=== PATIENT | male | born 1980 | race Hispanic/Latino ===

== ENCOUNTER 2021-02-17 14:39 | Emergency (ER) | payer OTHER ==
[~2021-02-17] VITALS: Ht 175.3 cm; Wt 68.0 kg
[~2021-02-17 14:39] MED LIST: REPREXAIN; Z MAGNESIUM PO; [UNRECOGNIZED DRUG - OTHER] IH; [UNRECOGNIZED DRUG - OTHER] PO; [UNRECOGNIZED DRUG - OTHER] PO
[2021-02-17 15:11] LABS: BASOPHILS # (AUTO) 0.1 (0.0-0.1); BASOPHILS % 1.4 % (0.0-1.0); EOSINOPHILS # (AUTO) 0.3 (0.0-0.4); EOSINOPHILS % 4.3 % (0.0-6.0); HEMATOCRIT 53.3 % (38.2-49.6); HEMOGLOBIN 17.5 g/dL (14.0-18.0); LYMPHOCYTES # (AUTO) 2.6 (1.0-3.2); LYMPHOCYTES % 35.7 % (18.0-39.1); MEAN CORPUSCULAR HEMOGLOBIN 31.7 pg (28-32); MEAN CORPUSCULAR HGB CONC 32.8 g/dL (31-35); MEAN CORPUSCULAR VOLUME 96.6 fL (81-99); MONOCYTES # (AUTO) 0.5 (0.2-0.8); MONOCYTES % 6.6 % (4.4-11.3); NEUTROPHILS # (AUTO) 3.8 (2.1-6.9); NEUTROPHILS % 51.9 % (38.7-80.0); PLATELET COUNT 254 x10e3/uL (140-360); RED BLOOD COUNT 5.52 x10e6/uL (4.3-5.7); RED CELL DISTRIBUTION WIDTH 14.1 % (11.7-14.4)
[2021-02-17 15:42] LABS: ALANINE AMINOTRANSFERASE 21 IU/L (0-55); ALBUMIN 4.3 g/dL (3.5-5.0); ALBUMIN/GLOBULIN RATIO 1.2 (0.8-2.0); ALKALINE PHOSPHATASE 48 IU/L (40-150); ANION GAP 17.4 mmol/L (8-16); BLOOD UREA NITROGEN < 5 mg/dL (7-26); CALCIUM 9.8 mg/dL (8.4-10.2); CARBON DIOXIDE 27 mmol/L (22-29); CHLORIDE 98 mmol/L (98-107); CREATININE, SERUM 1.99 mg/dL (0.72-1.25); EST GLOMERULAR FILTRATION RATE 37 ML/MIN (60-); GLUCOSE 103 mg/dL (74-118); POTASSIUM 3.4 mmol/L (3.5-5.1); SODIUM 139 mmol/L (136-145)
[2021-02-17 15:43] LABS: BUN/CREATININE RATIO 3 (6-25)
[2021-02-17] MEDS ORDERED: ACETAMINOPHEN 325 MG TAB PO PRN (15:45)
== END 2021-02-17 17:49 | disposition home or self-care (01) ==
LOC: ER 14:46
DX: R07.9 Chest pain, unspecified (principal); R50.9 Fever, unspecified; E23.2 Diabetes insipidus; Z20.822 Contact with and (suspected) exposure to COVID-19; Z85.841 Personal history of malignant neoplasm of brain
CPT/HCPCS: 36415; 71045; 80053; 84484; 85025; 85379; 93005; 99284; U0002

== ENCOUNTER 2021-03-12 12:44 | Inpatient (IN) | payer OTHER ==
[~2021-03-12] VITALS: Ht 175.3 cm; Wt 68.0 kg
[2021-03-12] MEDS ORDERED: ONDANSETRON HCL INJ 2MG/ML 2ML 2 MG/ML VIAL IV STA (13:26)
[2021-03-12] MEDS ORDERED: SODIUM CHLORIDE 0.9% 1000ML 1,000 ML IV SCH ×2 (13:30→15:15)
[2021-03-12 14:24] LABS: BASOPHILS # (AUTO) 0.1 (0.0-0.1); BASOPHILS % 1.2 % (0.0-1.0); EOSINOPHILS # (AUTO) 0.2 (0.0-0.4); EOSINOPHILS % 2.9 % (0.0-6.0); HEMATOCRIT 46.6 % (38.2-49.6); HEMOGLOBIN 15.4 g/dL (14.0-18.0); LYMPHOCYTES # (AUTO) 2.9 (1.0-3.2); LYMPHOCYTES % 43.6 % (18.0-39.1); MEAN CORPUSCULAR VOLUME 96.9 fL (81-99); MONOCYTES # (AUTO) 0.6 (0.2-0.8); MONOCYTES % 8.3 % (4.4-11.3); NEUTROPHILS # (AUTO) 2.9 (2.1-6.9); NEUTROPHILS % 43.4 % (38.7-80.0); PLATELET COUNT 323 x10e3/uL (140-360); RED BLOOD COUNT 4.81 x10e6/uL (4.3-5.7); RED CELL DISTRIBUTION WIDTH 15.7 % (11.7-14.4)
[2021-03-12 14:41] LABS: ALANINE AMINOTRANSFERASE 10 IU/L (0-55); ALBUMIN 3.8 g/dL (3.5-5.0); ALBUMIN/GLOBULIN RATIO 0.9 (0.8-2.0); ALKALINE PHOSPHATASE 53 IU/L (40-150); ANION GAP 24.4 mmol/L (8-16); BLOOD UREA NITROGEN < 5 mg/dL (7-26); CALCIUM 9.9 mg/dL (8.4-10.2); CARBON DIOXIDE 22 mmol/L (22-29); CHLORIDE 103 mmol/L (98-107); CREATININE, SERUM 2.24 mg/dL (0.72-1.25); EST GLOMERULAR FILTRATION RATE 33 ML/MIN (60-); GLUCOSE 87 mg/dL (74-118); POTASSIUM 3.4 mmol/L (3.5-5.1); SODIUM 146 mmol/L (136-145)
[2021-03-12 14:43] LABS: BUN/CREATININE RATIO 2 (6-25)
[2021-03-12 15:39] LABS: INR 1.23; PROTHROMBIN TIME 15.8 seconds (11.9-14.5)
[2021-03-12 15:40] LABS: PARTIAL THROMBOPLASTIN TIME 41.5 seconds (23.8-35.5)
[2021-03-12 15:56] LABS: CLARITY,URINE CLEAR (CLEAR); COLOR,URINE YELLOW (YELLOW); KETONES,URINE NEGATIVE (NEGATIVE); LEUKOCYTE ESTERASE ,URINE NEGATIVE (NEGATIVE); NITRITE,URINE NEGATIVE (NEGATIVE); PROTEIN,URINE DIPSTICK NEGATIVE (NEGATIVE); URINE UROBILINOGEN 0.2 mg/dL (0.2 - 1)
[2021-03-12 16:08] LABS: BACTERIA,URINE FEW /HPF
[2021-03-12] MEDS: KCL 20MEQ/.9 SOD CHL 1,000 ML IV SCH (16:51)
[2021-03-12 20:00] VITALS: BP 81/56
[2021-03-12 21:00] VITALS: BP 81/56
[2021-03-12 22:49] VITALS: BP 81/56
[2021-03-13] VITALS (8 sets, daily range): BP systolic 86–101; BP diastolic 55–72
[2021-03-13] MEDS: KCL 20MEQ/.9 SOD CHL 1,000 ML IV SCH ×2 (00:30→03:00)
[2021-03-13 05:44] LABS: BASOPHILS # (AUTO) 0.1 (0.0-0.1); BASOPHILS % 1.3 % (0.0-1.0); EOSINOPHILS # (AUTO) 0.2 (0.0-0.4); HEMATOCRIT 43.1 % (38.2-49.6); LYMPHOCYTES # (AUTO) 2.3 (1.0-3.2); LYMPHOCYTES % 41.7 % (18.0-39.1); MEAN CORPUSCULAR HGB CONC 32.5 g/dL (31-35); MEAN CORPUSCULAR VOLUME 98.6 fL (81-99); MONOCYTES # (AUTO) 0.6 (0.2-0.8); MONOCYTES % 10.2 % (4.4-11.3); NEUTROPHILS # (AUTO) 2.4 (2.1-6.9); NEUTROPHILS % 43.6 % (38.7-80.0); PLATELET COUNT 232 x10e3/uL (140-360); RED BLOOD COUNT 4.37 x10e6/uL (4.3-5.7); RED CELL DISTRIBUTION WIDTH 15.6 % (11.7-14.4)
[2021-03-13 06:18] LABS: ALANINE AMINOTRANSFERASE 9 IU/L (0-55); ALBUMIN 3.2 g/dL (3.5-5.0); ALBUMIN/GLOBULIN RATIO 0.9 (0.8-2.0); ALKALINE PHOSPHATASE 42 IU/L (40-150); AMYLASE 16 U/L (25-125); ANION GAP 18.7 mmol/L (8-16); BLOOD UREA NITROGEN < 5 mg/dL (7-26); CALCIUM 8.5 mg/dL (8.4-10.2); CARBON DIOXIDE 19 mmol/L (22-29); CHLORIDE 113 mmol/L (98-107); CREATININE, SERUM 1.92 mg/dL (0.72-1.25); EST GLOMERULAR FILTRATION RATE 39 ML/MIN (60-); GLUCOSE 77 mg/dL (74-118); LIPASE 73 U/L (8-78); POTASSIUM 3.7 mmol/L (3.5-5.1); SODIUM 147 mmol/L (136-145)
[2021-03-13 06:27] LABS: BUN/CREATININE RATIO 3 (6-25)
[2021-03-13] MEDS: ONDANSETRON HCL INJ 2MG/ML 2ML 2 MG/ML VIAL IV PRN ×2 (09:48→14:16)
[2021-03-13] MEDS ORDERED: levothyroxine PO (09:55)
[2021-03-13] MEDS ORDERED: DEXAMETHASONE4 MG PO (09:55)
[2021-03-13] MEDS ORDERED: CYCLOBENZAPRINE10 MG PO (09:55)
[2021-03-13] MEDS ORDERED: FAMOTIDINE20 MG PO (09:55)
[2021-03-13] MEDS ORDERED: FOLIC ACID0.4 MG PO (09:55)
[2021-03-13] MEDS ORDERED: LEVETIRACETAM500 MG PO ×2 (09:55)
[2021-03-13] MEDS ORDERED: DDAVP0.1 MG PO (09:55)
[2021-03-13] MEDS ORDERED: DOCUSATE SODIUM 100 MG CAP PO PRN (10:30)
[2021-03-13] MEDS ORDERED: CYCLOBENZAPRINE HCL 10 MG TAB PO PRN (10:30)
[2021-03-13] MEDS ORDERED: ZOLPIDEM TARTRATE 5 MG TAB PO PRN (10:30)
[2021-03-13] MEDS: FAMOTIDINE 20 MG TAB PO SCH (11:16)
[2021-03-13] MEDS: SODIUM CHLORIDE 0.45% 1,000 ML IV SCH ×2 (11:16→20:14)
[2021-03-13] MEDS: MORPHINE SULFATE INJ 2 MG/ML SYR IV PRN (14:16)
[2021-03-13] MEDS: DESMOPRESSIN ACETATE 0.1 MG PO SCH ×2 (15:53→20:47)
[2021-03-13] MEDS: LEVETIRACETAM 500 MG TAB PO SCH (16:05)
[2021-03-14] VITALS (8 sets, daily range): BP systolic 87–109; BP diastolic 58–72
[2021-03-14] MEDS: MORPHINE SULFATE INJ 2 MG/ML SYR IV PRN ×2 (00:39→04:45)
[2021-03-14] MEDS: SODIUM CHLORIDE 0.45% 1,000 ML IV SCH ×2 (02:33→09:20)
[2021-03-14] MEDS: LEVOTHYROXINE SODIUM 25 MCG TABLET PO SCH (05:55)
[2021-03-14] MEDS: LEVOTHYROXINE SODIUM 112 MCG TAB PO SCH (05:55)
[2021-03-14] MEDS: HOME MEDICATION--PATIENTS OWN PO SCH (10:32)
[2021-03-14] MEDS: DESMOPRESSIN ACETATE 0.1 MG PO SCH ×3 (10:32→20:37)
[2021-03-14] MEDS: FOLIC ACID 1 MG TAB PO SCH (10:33)
[2021-03-14] MEDS: FAMOTIDINE 20 MG TAB PO SCH (10:33)
[2021-03-14] MEDS: LEVETIRACETAM 500 MG TAB PO SCH ×2 (10:33→18:10)
[2021-03-14] MEDS: ONDANSETRON HCL INJ 2MG/ML 2ML 2 MG/ML VIAL IV PRN (12:11)
[2021-03-14 13:02] LABS: ANION GAP 16.9 mmol/L (8-16); BLOOD UREA NITROGEN < 5 mg/dL (7-26); CALCIUM 8.5 mg/dL (8.4-10.2); CARBON DIOXIDE 17 mmol/L (22-29); CHLORIDE 116 mmol/L (98-107); CREATININE, SERUM 1.87 mg/dL (0.72-1.25); EST GLOMERULAR FILTRATION RATE 40 ML/MIN (60-); GLUCOSE 119 mg/dL (74-118); POTASSIUM 3.9 mmol/L (3.5-5.1); SODIUM 146 mmol/L (136-145)
[2021-03-14 13:04] LABS: BUN/CREATININE RATIO 3 (6-25)
[2021-03-14] MEDS ORDERED: DEXTROSE 50% SYRINGE 50 ML IV PRN (13:30)
[2021-03-14] MEDS: SODIUM BICARBONATE 8.4% 100 ML in SODIUM CHLORIDE 0.45% 1,000 ML IV SCH ×2 (14:04→21:21)
[2021-03-14] MEDS: ACETAMINOPHEN/CODEINE 300MG - 30MG TAB PO PRN (15:07)
[2021-03-14] MEDS: INSULIN LISPRO 100 UNIT/1 ML 3ML VIAL SQ SCH ×2 (16:30→20:27)
[2021-03-15] VITALS (8 sets, daily range): BP systolic 84–102; BP diastolic 49–67
[2021-03-15] MEDS: ACETAMINOPHEN/CODEINE 300MG - 30MG TAB PO PRN ×4 (02:10→23:02)
[2021-03-15] MEDS: SODIUM BICARBONATE 8.4% 100 ML in SODIUM CHLORIDE 0.45% 1,000 ML IV SCH (03:28)
[2021-03-15] MEDS: LEVOTHYROXINE SODIUM 112 MCG TAB PO SCH (05:52)
[2021-03-15] MEDS: LEVOTHYROXINE SODIUM 25 MCG TABLET PO SCH (05:52)
[2021-03-15] MEDS: INSULIN LISPRO 100 UNIT/1 ML 3ML VIAL SQ SCH ×4 (07:30→21:00)
[2021-03-15] MEDS: ONDANSETRON HCL INJ 2MG/ML 2ML 2 MG/ML VIAL IV PRN ×2 (08:00→21:08)
[2021-03-15] MEDS ORDERED: TYLENOL325 MG PO (08:02)
[2021-03-15] MEDS ORDERED: PROMETHAZINE 12.5MG/ NACL 0.9% 12.5 MG/50 ML BAG IV PRN (08:15)
[2021-03-15] MEDS: PANTOPRAZOLE SOD 40 MG TABEC PO SCH ×2 (09:00→09:50)
[2021-03-15] MEDS: HOME MEDICATION--PATIENTS OWN PO SCH (09:48)
[2021-03-15] MEDS: FOLIC ACID 1 MG TAB PO SCH (09:50)
[2021-03-15] MEDS: LEVETIRACETAM 500 MG TAB PO SCH ×2 (09:50→18:31)
[2021-03-15] MEDS: DESMOPRESSIN ACETATE 0.1 MG PO SCH ×3 (09:50→21:06)
[2021-03-15] MEDS ORDERED: FUROSEMIDE INJ 10 MG/ML 2 ML VIAL IV ONE (12:00)
[2021-03-15 12:50] LABS: ALANINE AMINOTRANSFERASE 10 IU/L (0-55); ALBUMIN 2.7 g/dL (3.5-5.0); ALBUMIN/GLOBULIN RATIO 0.9 (0.8-2.0); ALKALINE PHOSPHATASE 43 IU/L (40-150); BLOOD UREA NITROGEN < 5 mg/dL (7-26); CALCIUM 7.4 mg/dL (8.4-10.2); CARBON DIOXIDE 23 mmol/L (22-29); CHLORIDE 108 mmol/L (98-107); CREATININE, SERUM 1.51 mg/dL (0.72-1.25); EST GLOMERULAR FILTRATION RATE 51 ML/MIN (60-); GLUCOSE 93 mg/dL (74-118); SODIUM 142 mmol/L (136-145)
[2021-03-15 12:51] LABS: BUN/CREATININE RATIO 3 (6-25)
[2021-03-15] MEDS: METHYLPREDNISOLONE SOD SUCC 40 MG/ML VIAL 1ML IV SCH (15:40)
[2021-03-15] MEDS: ALLOPURINOL 100 MG TAB PO SCH (15:41)
[2021-03-16] VITALS: BP 101/78
[2021-03-16 04:00] VITALS: BP 89/72
[2021-03-16] MEDS: LEVOTHYROXINE SODIUM 112 MCG TAB PO SCH (05:40)
[2021-03-16] MEDS: LEVOTHYROXINE SODIUM 25 MCG TABLET PO SCH (05:40)
[2021-03-16] MEDS: INSULIN LISPRO 100 UNIT/1 ML 3ML VIAL SQ SCH ×2 (07:30→11:19)
[2021-03-16 07:31] VITALS: BP 102/58
[2021-03-16 08:02] VITALS: BP 102/58
[2021-03-16] MEDS: PANTOPRAZOLE SOD 40 MG TABEC PO SCH (08:55)
[2021-03-16] MEDS: LEVETIRACETAM 500 MG TAB PO SCH (08:55)
[2021-03-16] MEDS: DESMOPRESSIN ACETATE 0.1 MG PO SCH ×2 (08:55→15:29)
[2021-03-16] MEDS: FOLIC ACID 1 MG TAB PO SCH (08:55)
[2021-03-16] MEDS: ALLOPURINOL 100 MG TAB PO SCH (08:56)
[2021-03-16] MEDS: ACETAMINOPHEN/CODEINE 300MG - 30MG TAB PO PRN (09:00)
[2021-03-16 11:32] VITALS: BP 88/54
[2021-03-16] MEDS ORDERED: PREDNISONE20 MG PO (12:53)
[2021-03-16] MEDS ORDERED: COLACE100 MG PO (12:53)
[2021-03-16] MEDS ORDERED: ALLOPURINOL100 MG PO (12:53)
[2021-03-16] MEDS ORDERED: SENNA LAX8.6 MG PO (12:53)
[2021-03-16] MEDS ORDERED: DOCUSATE SODIUM 100 MG CAP PO SCH (13:00)
[2021-03-16] MEDS ORDERED: SENNOSIDES 8.6 MG TAB PO SCH (13:00)
[2021-03-16 14:33] LABS: ANION GAP 17.4 mmol/L (8-16); BLOOD UREA NITROGEN < 5 mg/dL (7-26); CALCIUM 7.5 mg/dL (8.4-10.2); CARBON DIOXIDE 25 mmol/L (22-29); CHLORIDE 101 mmol/L (98-107); CREATININE, SERUM 1.81 mg/dL (0.72-1.25); EST GLOMERULAR FILTRATION RATE 42 ML/MIN (60-); GLUCOSE 143 mg/dL (74-118); POTASSIUM 3.4 mmol/L (3.5-5.1); SODIUM 140 mmol/L (136-145)
[2021-03-16 14:40] LABS: BUN/CREATININE RATIO 3 (6-25)
[2021-03-16] MEDS ORDERED: ALLOPURINOL 100 MG TAB PO SCH (15:00)
[2021-03-16] MEDS: METHYLPREDNISOLONE SOD SUCC 40 MG/ML VIAL 1ML IV SCH (15:29)
[2021-03-16] MEDS ORDERED: POTASSIUM CHLORIDE 10MEQ EA PO ONE (15:30)
== END 2021-03-16 16:39 | disposition home or self-care (01) | DRG 683 ==
LOC: ER 13:17 → ERHOLD 16:29 → INTOOBSV 16:29 → MED/SURG 18:44 → OBSVTOIN 03-14 13:30
PROVIDERS: ADMIT Internal Medicine; ATTEND Internal Medicine
DX: N17.9 Acute kidney failure, unspecified (principal); E87.0 Hyperosmolality and hypernatremia; E87.6 Hypokalemia; G40.909 Epilepsy, unspecified, not intractable, without status epilepticus; K52.9 Noninfective gastroenteritis and colitis, unspecified; K76.0 Fatty (change of) liver, not elsewhere classified; E03.9 Hypothyroidism, unspecified; E80.6 Other disorders of bilirubin metabolism; M76.821 Posterior tibial tendinitis, right leg; M10.9 Gout, unspecified; I12.9 Hypertensive chronic kidney disease with stage 1 through stage 4 chronic kidney disease, or unspecified chronic kidney disease; N18.30 Chronic kidney disease, stage 3 unspecified; Z20.822 Contact with and (suspected) exposure to COVID-19
CPT/HCPCS: 36415; 70450; 71045; 74176; 76705; 76770; 80048; 80053; 81001; 82150; 82948; 83605; 83690; 84484; 84550; 85025; 85610; 85730; 87040; 93005; 93970; 99284; G0378; J1940; J2270; J2405; J2920; J7030; U0002

== ENCOUNTER 2021-04-03 10:46 | Inpatient (IN) | payer OTHER ==
[~2021-04-03] VITALS: Ht 175.3 cm; Wt 103.4 kg
[~2021-04-03 10:46] MED LIST changes: +ALLOPURINOL100 MG PO; +COLACE100 MG PO; +CYCLOBENZAPRINE10 MG PO; +DDAVP0.1 MG PO; +DEXAMETHASONE4 MG PO; +FAMOTIDINE20 MG PO; +FOLIC ACID0.4 MG PO; +LEVETIRACETAM500 MG IV; +LEVETIRACETAM500 MG PO; +PREDNISONE20 MG PO; +SENNA LAX8.6 MG PO; +TYLENOL325 MG PO; +levothyroxine PO
[2021-04-03] MEDS ORDERED: TETRACAINE HCL 0.5% OPTH SOLN 4 ML BTL ONE (11:08)
[2021-04-03] MEDS ORDERED: FLUORESCEIN SOD(OPTH) 1 MG STRP ONE (11:08)
[2021-04-03] MEDS ORDERED: SODIUM CHLORIDE 0.9% 1000ML 1,000 ML IV SCH ×2 (11:15→11:45)
[2021-04-03] MEDS ORDERED: FLUORESCEIN SOD(OPTH) 1 MG STRP OP ONE (11:15)
[2021-04-03] MEDS ORDERED: TETRACAINE HCL 0.5% OPTH SOLN 4 ML BTL OP ONE (11:15)
[2021-04-03 11:29] LABS: BASOPHILS # (AUTO) 0.1 (0.0-0.1); BASOPHILS % 0.8 % (0.0-1.0); EOSINOPHILS # (AUTO) 0.6 (0.0-0.4); EOSINOPHILS % 5.5 % (0.0-6.0); HEMATOCRIT 51.8 % (38.2-49.6); HEMOGLOBIN 16.7 g/dL (14.0-18.0); LYMPHOCYTES # (AUTO) 2.5 (1.0-3.2); LYMPHOCYTES % 23.8 % (18.0-39.1); MEAN CORPUSCULAR HEMOGLOBIN 32.2 pg (28-32); MEAN CORPUSCULAR HGB CONC 32.2 g/dL (31-35); MEAN CORPUSCULAR VOLUME 99.8 fL (81-99); MONOCYTES # (AUTO) 0.5 (0.2-0.8); MONOCYTES % 5.1 % (4.4-11.3); NEUTROPHILS # (AUTO) 6.7 (2.1-6.9); NEUTROPHILS % 64.1 % (38.7-80.0); PLATELET COUNT 160 x10e3/uL (140-360); RED BLOOD COUNT 5.19 x10e6/uL (4.3-5.7); RED CELL DISTRIBUTION WIDTH 17.6 % (11.7-14.4)
[2021-04-03 11:44] LABS: ALBUMIN 3.7 g/dL (3.5-5.0); ALBUMIN/GLOBULIN RATIO 0.7 (0.8-2.0); ANION GAP 26.9 mmol/L (8-16); CALCIUM 10.1 mg/dL (8.4-10.2); CREATININE, SERUM 2.76 mg/dL (0.72-1.25); POTASSIUM 3.9 mmol/L (3.5-5.1)
[2021-04-03] MEDS: CEFEPIME 1 GM in SODIUM CHLORIDE 0.9% 50ML 50 ML IV SCH ×2 (12:00→22:00)
[2021-04-03] MEDS ORDERED: TOBRAMYCIN/DEXAMETHASONE(OPTH) 3.5 GM TUBE OP ONE (13:15)
[2021-04-03] MEDS: Vancomycin IV 1 GM in SODIUM CHLORIDE 0.9% 250ML 250 ML IV SCH (13:25)
[2021-04-03 14:15] LABS: CLARITY,URINE SL CLOUDY (CLEAR); COLOR,URINE STRAW (YELLOW); KETONES,URINE TRACE (NEGATIVE); LEUKOCYTE ESTERASE ,URINE NEGATIVE (NEGATIVE); NITRITE,URINE NEGATIVE (NEGATIVE); PROTEIN,URINE DIPSTICK NEGATIVE (NEGATIVE); URINE UROBILINOGEN 0.2 mg/dL (0.2 - 1)
[2021-04-03] MEDS: PANTOPRAZOLE SOD 40 MG TABEC PO SCH (14:15)
[2021-04-03 14:29] LABS: BACTERIA,URINE MANY /HPF; EPITHELIAL CELLS,URINE FEW /LPF; RBC,URINE 0-5 /HPF (0-5); TRANSITIONAL EPI CELLS,URINE MODERATE; WBC,URINE (MAN) 21-50 /HPF (0-5)
[2021-04-03] MEDS: TOBRAMYCIN/DEXAMETHASONE(OPTH) 5 ML BTL OP SCH ×2 (20:00→20:30)
[2021-04-03 21:00] VITALS: BP 113/62
[2021-04-03 21:41] VITALS: BP 113/62
[2021-04-03] MEDS ORDERED: SODIUM CHLORIDE 0.9% 250ML 250 ML ONE (22:01)
[2021-04-03 23:25] VITALS: BP 113/62
[2021-04-04 01:43] VITALS: BP 100/83
[2021-04-04] MEDS: TOBRAMYCIN/DEXAMETHASONE(OPTH) 5 ML BTL OP SCH ×4 (02:00→20:15)
[2021-04-04 05:21] VITALS: BP 90/61
[2021-04-04 06:25] LABS: BASOPHILS # (AUTO) 0.1 (0.0-0.1); BASOPHILS % 0.8 % (0.0-1.0); EOSINOPHILS # (AUTO) 0.5 (0.0-0.4); EOSINOPHILS % 4.9 % (0.0-6.0); HEMATOCRIT 48.2 % (38.2-49.6); LYMPHOCYTES # (AUTO) 1.9 (1.0-3.2); LYMPHOCYTES % 20.9 % (18.0-39.1); MEAN CORPUSCULAR HEMOGLOBIN 32.3 pg (28-32); MEAN CORPUSCULAR HGB CONC 31.1 g/dL (31-35); MEAN CORPUSCULAR VOLUME 103.7 fL (81-99); MONOCYTES # (AUTO) 0.6 (0.2-0.8); MONOCYTES % 6.4 % (4.4-11.3); NEUTROPHILS # (AUTO) 6.1 (2.1-6.9); NEUTROPHILS % 66.5 % (38.7-80.0); PLATELET COUNT 157 x10e3/uL (140-360); RED BLOOD COUNT 4.65 x10e6/uL (4.3-5.7); RED CELL DISTRIBUTION WIDTH 17.5 % (11.7-14.4)
[2021-04-04 07:07] LABS: ALBUMIN/GLOBULIN RATIO 0.7 (0.8-2.0); ANION GAP 20.6 mmol/L (8-16); CALCIUM 8.9 mg/dL (8.4-10.2); CREATININE, SERUM 2.08 mg/dL (0.72-1.25); POTASSIUM 3.6 mmol/L (3.5-5.1)
[2021-04-04] MEDS: PANTOPRAZOLE SOD 40 MG TABEC PO SCH (07:30)
[2021-04-04] MEDS: CEFEPIME 1 GM in SODIUM CHLORIDE 0.9% 50ML 50 ML IV SCH (09:00)
[2021-04-04] MEDS: Vancomycin IV 1 GM in SODIUM CHLORIDE 0.9% 250ML 250 ML IV SCH (10:00)
[2021-04-04] MEDS ORDERED: CASIRIVIMAB/IMDEVIMAB 10 ML in SODIUM CHLORIDE 0.9% 100 ML IV ONE (13:00)
[2021-04-04] MEDS ORDERED: ACETAMINOPHEN 325 MG TAB PO PRN (15:15)
[2021-04-04] MEDS ORDERED: DEXTROSE 5% 1,000 ML IV ONE (15:15)
[2021-04-04] MEDS: DEXTROSE 5% 1,000 ML IV SCH (15:45)
[2021-04-04] MEDS: DESMOPRESSIN ACETATE 0.2 MG TABLET PO SCH (16:06)
[2021-04-04] MEDS: SODIUM BICARBONATE 650 MG TAB PO SCH (16:16)
[2021-04-04 18:01] VITALS: BP 94/51
[2021-04-04 18:03] VITALS: BP 96/56
[2021-04-04 20:15] VITALS: BP 100/69
[2021-04-04] MEDS ORDERED: DESMOPRESSIN ACETATE 0.2 MG TABLET PO SCH (21:00)
[2021-04-04] MEDS ORDERED: DESMOPRESSIN ACETATE 0.1 MG PO SCH (21:00)
[2021-04-05] VITALS (9 sets, daily range): BP systolic 85–104; BP diastolic 54–87
[2021-04-05] MEDS: DEXTROSE 5% 1,000 ML IV SCH ×3 (00:09→16:06)
[2021-04-05] MEDS: TOBRAMYCIN/DEXAMETHASONE(OPTH) 5 ML BTL OP SCH ×4 (03:00→20:30)
[2021-04-05] MEDS: LEVETIRACETAM 500 MG TAB PO SCH (10:32)
[2021-04-05] MEDS: PANTOPRAZOLE SOD 40 MG TABEC PO SCH (10:32)
[2021-04-05] MEDS: SENNOSIDES 8.6 MG TAB PO SCH (10:32)
[2021-04-05] MEDS: ALLOPURINOL 100 MG TAB PO SCH (10:32)
[2021-04-05] MEDS: SODIUM BICARBONATE 650 MG TAB PO SCH ×2 (10:32→16:55)
[2021-04-05] MEDS: DESMOPRESSIN ACETATE 0.2 MG TABLET PO SCH (10:32)
[2021-04-05] MEDS: DESMOPRESSIN ACETATE 5 ML SPRAY NS SCH ×2 (21:00→21:42)
[2021-04-06] MEDS: DEXTROSE 5% 1,000 ML IV SCH ×3 (00:55→15:46)
[2021-04-06] MEDS: TOBRAMYCIN/DEXAMETHASONE(OPTH) 5 ML BTL OP SCH ×4 (01:36→20:26)
[2021-04-06 01:42] VITALS: BP 125/96
[2021-04-06 06:03] VITALS: BP 91/41
[2021-04-06 06:09] LABS: BASOPHILS % 0.5 % (0.0-1.0); EOSINOPHILS # (AUTO) 0.4 (0.0-0.4); EOSINOPHILS % 4.8 % (0.0-6.0); HEMATOCRIT 36.3 % (38.2-49.6); HEMOGLOBIN 12.2 g/dL (14.0-18.0); LYMPHOCYTES # (AUTO) 1.4 (1.0-3.2); LYMPHOCYTES % 18.2 % (18.0-39.1); MEAN CORPUSCULAR HEMOGLOBIN 32.6 pg (28-32); MEAN CORPUSCULAR HGB CONC 33.6 g/dL (31-35); MEAN CORPUSCULAR VOLUME 97.1 fL (81-99); MONOCYTES # (AUTO) 0.4 (0.2-0.8); MONOCYTES % 4.8 % (4.4-11.3); NEUTROPHILS # (AUTO) 5.5 (2.1-6.9); NEUTROPHILS % 71.3 % (38.7-80.0); PLATELET COUNT 207 x10e3/uL (140-360); RED BLOOD COUNT 3.74 x10e6/uL (4.3-5.7); RED CELL DISTRIBUTION WIDTH 16.6 % (11.7-14.4)
[2021-04-06 06:25] LABS: ALBUMIN 2.7 g/dL (3.5-5.0); ANION GAP 15.6 mmol/L (8-16); CALCIUM 8.2 mg/dL (8.4-10.2); CREATININE, SERUM 1.62 mg/dL (0.72-1.25)
[2021-04-06 06:26] LABS: ALBUMIN/GLOBULIN RATIO 0.7 (0.8-2.0)
[2021-04-06 06:33] LABS: POTASSIUM 2.6 mmol/L (3.5-5.1)
[2021-04-06] MEDS: DESMOPRESSIN ACETATE 5 ML SPRAY NS SCH ×2 (09:00→21:42)
[2021-04-06] MEDS: LEVETIRACETAM 500 MG TAB PO SCH (09:52)
[2021-04-06] MEDS: PANTOPRAZOLE SOD 40 MG TABEC PO SCH (09:52)
[2021-04-06] MEDS: SENNOSIDES 8.6 MG TAB PO SCH (09:52)
[2021-04-06] MEDS: SODIUM BICARBONATE 650 MG TAB PO SCH ×2 (09:52→16:20)
[2021-04-06] MEDS: ALLOPURINOL 100 MG TAB PO SCH (09:52)
[2021-04-06 10:05] VITALS: BP 91/41
[2021-04-06 10:06] VITALS: BP 91/41
[2021-04-06 19:25] VITALS: BP 107/74
[2021-04-06] MEDS ORDERED: POTASSIUM CHLORIDE 20 MEQ TAB CR PO STA (19:32)
[2021-04-06] MEDS ORDERED: POTASSIUM CHLORIDE 20MEQ/100ML 200 ML IV ONE (20:45)
[2021-04-06 21:00] VITALS: BP 107/74
[2021-04-07] VITALS (8 sets, daily range): BP systolic 97–132; BP diastolic 62–96
[2021-04-07] MEDS: DEXTROSE 5% 1,000 ML IV SCH ×4 (01:59→23:55)
[2021-04-07] MEDS: TOBRAMYCIN/DEXAMETHASONE(OPTH) 5 ML BTL OP SCH ×4 (02:01→21:25)
[2021-04-07 06:23] LABS: BASOPHILS % 0.4 % (0.0-1.0); EOSINOPHILS # (AUTO) 0.4 (0.0-0.4); EOSINOPHILS % 7.5 % (0.0-6.0); HEMATOCRIT 36.3 % (38.2-49.6); HEMOGLOBIN 11.7 g/dL (14.0-18.0); LYMPHOCYTES # (AUTO) 1.2 (1.0-3.2); LYMPHOCYTES % 21.8 % (18.0-39.1); MEAN CORPUSCULAR HEMOGLOBIN 32.1 pg (28-32); MEAN CORPUSCULAR HGB CONC 32.2 g/dL (31-35); MEAN CORPUSCULAR VOLUME 99.7 fL (81-99); MONOCYTES # (AUTO) 0.3 (0.2-0.8); MONOCYTES % 5.2 % (4.4-11.3); NEUTROPHILS # (AUTO) 3.6 (2.1-6.9); NEUTROPHILS % 64.4 % (38.7-80.0); PLATELET COUNT 232 x10e3/uL (140-360); RED BLOOD COUNT 3.64 x10e6/uL (4.3-5.7); RED CELL DISTRIBUTION WIDTH 16.4 % (11.7-14.4)
[2021-04-07 06:49] LABS: ALBUMIN 2.7 g/dL (3.5-5.0); ALBUMIN/GLOBULIN RATIO 0.7 (0.8-2.0); ANION GAP 12.9 mmol/L (8-16); CALCIUM 8.6 mg/dL (8.4-10.2); CREATININE, SERUM 1.21 mg/dL (0.72-1.25)
[2021-04-07 06:53] LABS: POTASSIUM 2.9 mmol/L (3.5-5.1)
[2021-04-07 07:25] LABS: MAGNESIUM 2.3 MG/DL (1.3-2.1); PHOSPHORUS 1.1 MG/DL (2.3-4.7)
[2021-04-07 07:57] LABS: EOSINOPHILS % (MANUAL) 10 % (0-7); LYMPHOCYTES % (MANUAL) 23 % (19-48); MONOCYTES % (MANUAL) 2 % (3.4-9.0); NEUTROPHILS % (MANUAL) 64 % (40-74); NUCLEATED RED BLOOD CELLS 3; PLATELET ESTIMATE ADEQUATE
[2021-04-07 07:58] LABS: PLATELET MORPHOLOGY COMMENT FEW GIANT; RBC MORPHOLOGY COMMENT NORMAL
[2021-04-07] MEDS: PANTOPRAZOLE SOD 40 MG TABEC PO SCH (08:26)
[2021-04-07] MEDS: LEVETIRACETAM 500 MG TAB PO SCH (08:27)
[2021-04-07] MEDS: DESMOPRESSIN ACETATE 5 ML SPRAY NS SCH ×3 (08:27→21:26)
[2021-04-07] MEDS: SENNOSIDES 8.6 MG TAB PO SCH (08:27)
[2021-04-07] MEDS: SODIUM BICARBONATE 650 MG TAB PO SCH ×2 (08:28→16:12)
[2021-04-07] MEDS: ALLOPURINOL 100 MG TAB PO SCH (09:03)
[2021-04-07] MEDS ORDERED: POTASSIUM CHLORIDE 20MEQ/100ML 200 ML IV ONE (10:30)
[2021-04-07] MEDS ORDERED: POTASSIUM PHOSPHATE 15 MM in SODIUM CHLORIDE 0.9% 250ML 250 ML IV ONE (11:00)
[2021-04-08] VITALS (9 sets, daily range): BP systolic 103–132; BP diastolic 67–100
[2021-04-08] MEDS: TOBRAMYCIN/DEXAMETHASONE(OPTH) 5 ML BTL OP SCH ×4 (03:00→19:56)
[2021-04-08] MEDS: DESMOPRESSIN ACETATE 5 ML SPRAY NS SCH ×3 (05:21→19:56)
[2021-04-08 06:14] LABS: BASOPHILS % 0.4 % (0.0-1.0); EOSINOPHILS # (AUTO) 0.4 (0.0-0.4); EOSINOPHILS % 7.4 % (0.0-6.0); HEMATOCRIT 30.6 % (38.2-49.6); HEMOGLOBIN 9.7 g/dL (14.0-18.0); LYMPHOCYTES # (AUTO) 1.1 (1.0-3.2); LYMPHOCYTES % 23.8 % (18.0-39.1); MEAN CORPUSCULAR HEMOGLOBIN 32.8 pg (28-32); MEAN CORPUSCULAR HGB CONC 31.7 g/dL (31-35); MEAN CORPUSCULAR VOLUME 103.4 fL (81-99); MONOCYTES # (AUTO) 0.3 (0.2-0.8); MONOCYTES % 5.7 % (4.4-11.3); NEUTROPHILS % 62.1 % (38.7-80.0); PLATELET COUNT 229 x10e3/uL (140-360); RED BLOOD COUNT 2.96 x10e6/uL (4.3-5.7); RED CELL DISTRIBUTION WIDTH 16.8 % (11.7-14.4)
[2021-04-08] MEDS: DEXTROSE 5% 1,000 ML IV SCH ×3 (07:45→19:56)
[2021-04-08 07:58] LABS: EOSINOPHILS % (MANUAL) 6 % (0-7); LYMPHOCYTES % (MANUAL) 21 % (19-48); MONOCYTES % (MANUAL) 11 % (3.4-9.0); NEUTROPHILS % (MANUAL) 62 % (40-74)
[2021-04-08 07:59] LABS: PLATELET ESTIMATE ADEQUATE; PLATELET MORPHOLOGY COMMENT NORMAL; RBC MORPHOLOGY COMMENT NORMAL
[2021-04-08] MEDS: PANTOPRAZOLE SOD 40 MG TABEC PO SCH (08:33)
[2021-04-08] MEDS: SENNOSIDES 8.6 MG TAB PO SCH (08:33)
[2021-04-08] MEDS: SODIUM BICARBONATE 650 MG TAB PO SCH ×2 (08:33→17:14)
[2021-04-08] MEDS: LEVETIRACETAM 500 MG TAB PO SCH (08:33)
[2021-04-08] MEDS: ALLOPURINOL 100 MG TAB PO SCH (08:33)
[2021-04-08 09:03] LABS: ANION GAP 13.5 mmol/L (8-16); CALCIUM 8.5 mg/dL (8.4-10.2); CREATININE, SERUM 1.05 mg/dL (0.72-1.25); MAGNESIUM 1.8 MG/DL (1.3-2.1)
[2021-04-08 09:14] LABS: POTASSIUM 2.5 mmol/L (3.5-5.1)
[2021-04-08] MEDS ORDERED: POTASSIUM PHOSPHATE 20 MM in SODIUM CHLORIDE 0.9% 250ML 250 ML INJ ONE (10:45)
[2021-04-09] VITALS (8 sets, daily range): BP systolic 103–122; BP diastolic 57–92
[2021-04-09] MEDS: TOBRAMYCIN/DEXAMETHASONE(OPTH) 5 ML BTL OP SCH ×4 (02:21→22:03)
[2021-04-09] MEDS: DESMOPRESSIN ACETATE 5 ML SPRAY NS SCH ×3 (05:08→22:04)
[2021-04-09 06:27] LABS: BASOPHILS % 0.4 % (0.0-1.0); EOSINOPHILS # (AUTO) 0.4 (0.0-0.4); EOSINOPHILS % 7.5 % (0.0-6.0); HEMATOCRIT 34.2 % (38.2-49.6); HEMOGLOBIN 11.4 g/dL (14.0-18.0); LYMPHOCYTES # (AUTO) 1.5 (1.0-3.2); LYMPHOCYTES % 27.2 % (18.0-39.1); MEAN CORPUSCULAR HEMOGLOBIN 32.1 pg (28-32); MEAN CORPUSCULAR HGB CONC 33.3 g/dL (31-35); MEAN CORPUSCULAR VOLUME 96.3 fL (81-99); MONOCYTES # (AUTO) 0.4 (0.2-0.8); MONOCYTES % 6.6 % (4.4-11.3); NEUTROPHILS # (AUTO) 3.1 (2.1-6.9); NEUTROPHILS % 57.5 % (38.7-80.0); PLATELET COUNT 289 x10e3/uL (140-360); RED BLOOD COUNT 3.55 x10e6/uL (4.3-5.7); RED CELL DISTRIBUTION WIDTH 16.3 % (11.7-14.4)
[2021-04-09 07:19] LABS: ALBUMIN 2.6 g/dL (3.5-5.0); ALBUMIN/GLOBULIN RATIO 0.7 (0.8-2.0); ANION GAP 13.5 mmol/L (8-16); CALCIUM 8.3 mg/dL (8.4-10.2); CREATININE, SERUM 0.99 mg/dL (0.72-1.25)
[2021-04-09 07:21] LABS: POTASSIUM 2.5 mmol/L (3.5-5.1)
[2021-04-09 07:30] LABS: MAGNESIUM 1.6 MG/DL (1.3-2.1)
[2021-04-09] MEDS: DEXTROSE 5% 1,000 ML IV SCH ×3 (07:45→22:05)
[2021-04-09] MEDS ORDERED: LEVETIRACETAM ORAL SOLUTION 500 MG/5 ML SOLN PO SCH (09:00)
[2021-04-09] MEDS: SODIUM BICARBONATE 650 MG TAB PO SCH ×2 (09:21→16:31)
[2021-04-09] MEDS: LEVETIRACETAM 500MG/5ML VIAL 500 MG in SODIUM CHLORIDE 0.9% 100 ML IV SCH (09:21)
[2021-04-09] MEDS: SENNOSIDES 8.6 MG TAB PO SCH (09:21)
[2021-04-09] MEDS: PANTOPRAZOLE SOD 40 MG TABEC PO SCH (09:21)
[2021-04-09] MEDS: ALLOPURINOL 100 MG TAB PO SCH (09:24)
[2021-04-09] MEDS ORDERED: POTASSIUM CHLORIDE 20MEQ/100ML 300 ML IV ONE (10:15)
[2021-04-09] MEDS ORDERED: MAGNESIUM SULFATE 2GM/50ML 50 ML IV ONE (14:30)
[2021-04-09] MEDS: QUETIAPINE FUMARATE 25 MG TAB PO SCH (16:30)
[2021-04-09] MEDS: QUETIAPINE FUMARATE 100 MG TAB PO SCH (22:05)
[2021-04-10] VITALS (8 sets, daily range): BP systolic 93–123; BP diastolic 66–93
[2021-04-10] MEDS: TOBRAMYCIN/DEXAMETHASONE(OPTH) 5 ML BTL OP SCH ×2 (02:11→08:48)
[2021-04-10] MEDS: DEXTROSE 5% 1,000 ML IV SCH ×3 (05:02→21:08)
[2021-04-10] MEDS: DESMOPRESSIN ACETATE 5 ML SPRAY NS SCH ×3 (05:02→21:08)
[2021-04-10 06:49] LABS: BASOPHILS % 0.7 % (0.0-1.0); EOSINOPHILS # (AUTO) 0.4 (0.0-0.4); EOSINOPHILS % 7.2 % (0.0-6.0); HEMATOCRIT 40.8 % (38.2-49.6); LYMPHOCYTES # (AUTO) 1.8 (1.0-3.2); LYMPHOCYTES % 29.8 % (18.0-39.1); MEAN CORPUSCULAR HEMOGLOBIN 31.9 pg (28-32); MEAN CORPUSCULAR HGB CONC 31.9 g/dL (31-35); MONOCYTES # (AUTO) 0.3 (0.2-0.8); MONOCYTES % 5.7 % (4.4-11.3); NEUTROPHILS # (AUTO) 3.3 (2.1-6.9); NEUTROPHILS % 56.1 % (38.7-80.0); PLATELET COUNT 340 x10e3/uL (140-360); RED BLOOD COUNT 4.08 x10e6/uL (4.3-5.7); RED CELL DISTRIBUTION WIDTH 17.1 % (11.7-14.4)
[2021-04-10 07:15] LABS: ALBUMIN 2.9 g/dL (3.5-5.0); ALBUMIN/GLOBULIN RATIO 0.7 (0.8-2.0); ANION GAP 17.4 mmol/L (8-16); CALCIUM 9.7 mg/dL (8.4-10.2); CREATININE, SERUM 1.09 mg/dL (0.72-1.25); POTASSIUM 3.4 mmol/L (3.5-5.1)
[2021-04-10] MEDS: SODIUM BICARBONATE 650 MG TAB PO SCH ×2 (08:48→16:43)
[2021-04-10] MEDS: PANTOPRAZOLE SOD 40 MG TABEC PO SCH (08:48)
[2021-04-10] MEDS: QUETIAPINE FUMARATE 25 MG TAB PO SCH ×2 (08:48→16:43)
[2021-04-10] MEDS: SENNOSIDES 8.6 MG TAB PO SCH (08:48)
[2021-04-10] MEDS: ALLOPURINOL 100 MG TAB PO SCH (08:48)
[2021-04-10] MEDS: LEVETIRACETAM 500MG/5ML VIAL 500 MG in SODIUM CHLORIDE 0.9% 100 ML IV SCH (09:58)
[2021-04-10] MEDS ORDERED: POTASSIUM CHLORIDE 20 MEQ TAB CR PO ONE (11:00)
[2021-04-10] MEDS ORDERED: DEXTROSE 5% 1,000 ML IV STA (16:10)
[2021-04-10] MEDS: QUETIAPINE FUMARATE 100 MG TAB PO SCH (21:00)
[2021-04-11] VITALS (9 sets, daily range): BP systolic 100–123; BP diastolic 56–96
[2021-04-11] MEDS: DEXTROSE 5% 1,000 ML IV SCH ×4 (03:42→23:31)
[2021-04-11 06:37] LABS: BASOPHILS % 0.6 % (0.0-1.0); EOSINOPHILS # (AUTO) 0.4 (0.0-0.4); EOSINOPHILS % 7.1 % (0.0-6.0); HEMATOCRIT 30.7 % (38.2-49.6); HEMOGLOBIN 9.8 g/dL (14.0-18.0); LYMPHOCYTES # (AUTO) 1.6 (1.0-3.2); LYMPHOCYTES % 32.4 % (18.0-39.1); MEAN CORPUSCULAR HEMOGLOBIN 32.8 pg (28-32); MEAN CORPUSCULAR HGB CONC 31.9 g/dL (31-35); MEAN CORPUSCULAR VOLUME 102.7 fL (81-99); MONOCYTES # (AUTO) 0.4 (0.2-0.8); MONOCYTES % 8.3 % (4.4-11.3); NEUTROPHILS # (AUTO) 2.5 (2.1-6.9); PLATELET COUNT 261 x10e3/uL (140-360); RED BLOOD COUNT 2.99 x10e6/uL (4.3-5.7); RED CELL DISTRIBUTION WIDTH 17.2 % (11.7-14.4)
[2021-04-11 07:52] LABS: BAND NEUTROPHILS % (MANUAL) 1 %; EOSINOPHILS % (MANUAL) 4 % (0-7); LYMPHOCYTES % (MANUAL) 39 % (19-48); MONOCYTES % (MANUAL) 8 % (3.4-9.0); NEUTROPHILS % (MANUAL) 45 % (40-74); PLATELET ESTIMATE ADEQUATE; PLATELET MORPHOLOGY COMMENT NORMAL; RBC MORPHOLOGY COMMENT NORMAL
[2021-04-11] MEDS: ALLOPURINOL 100 MG TAB PO SCH (08:29)
[2021-04-11] MEDS: LEVETIRACETAM 500MG/5ML VIAL 500 MG in SODIUM CHLORIDE 0.9% 100 ML IV SCH (08:29)
[2021-04-11] MEDS: SODIUM BICARBONATE 650 MG TAB PO SCH ×2 (08:29→16:15)
[2021-04-11] MEDS: PANTOPRAZOLE SOD 40 MG TABEC PO SCH (08:29)
[2021-04-11] MEDS: DESMOPRESSIN ACETATE 5 ML SPRAY NS SCH ×3 (08:29→20:54)
[2021-04-11] MEDS: SENNOSIDES 8.6 MG TAB PO SCH (08:29)
[2021-04-11] MEDS: QUETIAPINE FUMARATE 25 MG TAB PO SCH ×2 (08:32→16:15)
[2021-04-11 10:49] LABS: ALBUMIN 2.7 g/dL (3.5-5.0); ALBUMIN/GLOBULIN RATIO 0.7 (0.8-2.0); ANION GAP 13.9 mmol/L (8-16); CALCIUM 8.5 mg/dL (8.4-10.2); CREATININE, SERUM 1.08 mg/dL (0.72-1.25)
[2021-04-11 11:08] LABS: POTASSIUM 2.9 mmol/L (3.5-5.1)
[2021-04-11] MEDS ORDERED: POTASSIUM CHLORIDE 10MEQ EA PO ONE (11:30)
[2021-04-11] MEDS ORDERED: POTASSIUM CHLORIDE 20MEQ/100ML 300 ML IV ONE (11:45)
[2021-04-11] MEDS ORDERED: MAGNESIUM SULFATE 2GM/50ML 50 ML IV ONE (11:45)
[2021-04-11] MEDS: QUETIAPINE FUMARATE 100 MG TAB PO SCH (20:54)
[2021-04-12] VITALS (8 sets, daily range): BP systolic 99–127; BP diastolic 64–93
[2021-04-12 07:44] LABS: BASOPHILS % 0.6 % (0.0-1.0); EOSINOPHILS # (AUTO) 0.4 (0.0-0.4); HEMATOCRIT 33.8 % (38.2-49.6); HEMOGLOBIN 10.7 g/dL (14.0-18.0); LYMPHOCYTES # (AUTO) 1.9 (1.0-3.2); LYMPHOCYTES % 35.6 % (18.0-39.1); MEAN CORPUSCULAR HEMOGLOBIN 31.8 pg (28-32); MEAN CORPUSCULAR HGB CONC 31.7 g/dL (31-35); MEAN CORPUSCULAR VOLUME 100.3 fL (81-99); MONOCYTES # (AUTO) 0.4 (0.2-0.8); MONOCYTES % 6.7 % (4.4-11.3); NEUTROPHILS # (AUTO) 2.7 (2.1-6.9); PLATELET COUNT 296 x10e3/uL (140-360); RED BLOOD COUNT 3.37 x10e6/uL (4.3-5.7); RED CELL DISTRIBUTION WIDTH 16.6 % (11.7-14.4)
[2021-04-12 08:16] LABS: ALBUMIN 2.7 g/dL (3.5-5.0); ALBUMIN/GLOBULIN RATIO 0.8 (0.8-2.0); CALCIUM 8.3 mg/dL (8.4-10.2); CREATININE, SERUM 1.04 mg/dL (0.72-1.25)
[2021-04-12] MEDS: DEXTROSE 5% 1,000 ML IV SCH ×2 (08:43→12:13)
[2021-04-12] MEDS: SENNOSIDES 8.6 MG TAB PO SCH (08:48)
[2021-04-12] MEDS: PANTOPRAZOLE SOD 40 MG TABEC PO SCH (08:48)
[2021-04-12] MEDS: ZINC SULFATE 220 MG CAP PO SCH (08:49)
[2021-04-12] MEDS: ALLOPURINOL 100 MG TAB PO SCH (08:49)
[2021-04-12] MEDS: ASCORBIC ACID 500 MG TAB PO SCH (08:49)
[2021-04-12] MEDS: SODIUM BICARBONATE 650 MG TAB PO SCH ×2 (08:49→15:07)
[2021-04-12] MEDS: DESMOPRESSIN ACETATE 5 ML SPRAY NS SCH ×4 (08:55→19:53)
[2021-04-12] MEDS: LEVETIRACETAM 500MG/5ML VIAL 500 MG in SODIUM CHLORIDE 0.9% 100 ML IV SCH (08:55)
[2021-04-12] MEDS: QUETIAPINE FUMARATE 25 MG TAB PO SCH ×2 (09:00→15:07)
[2021-04-12] MEDS: CHOLECALCIFEROL 1,000 UNIT TAB PO SCH (09:15)
[2021-04-12] MEDS ORDERED: POTASSIUM CHLORIDE 20MEQ/100ML 200 ML IV ONE (14:30)
[2021-04-12] MEDS: POTASSIUM CHLORIDE 20 MEQ TAB CR PO SCH ×3 (15:06→19:52)
[2021-04-12] MEDS: ONDANSETRON HCL INJ 2MG/ML 2ML 2 MG/ML VIAL IV PRN (16:47)
[2021-04-12] MEDS: METOCLOPRAMIDE HCL 10 MG/2ML VIAL IV SCH ×2 (16:51→19:53)
[2021-04-12] MEDS ORDERED: WATER STERILE 10 ML VIAL ONE (18:03)
[2021-04-12] MEDS ORDERED: ETOMIDATE 2 MG/ML 10 ML INJ IV ONE (18:03)
[2021-04-12] MEDS ORDERED: MIDAZOLAM HCL 2 MG/2 ML VIAL ONE (18:03)
[2021-04-12] MEDS ORDERED: SUCCINYLCHOLINE CHLORIDE 20 MG/ML 10ML VIAL ONE (18:03)
[2021-04-12] MEDS ORDERED: VECURONIUM BROMIDE FOR INJ 20 MG VIAL ONE (18:03)
[2021-04-12] MEDS: QUETIAPINE FUMARATE 100 MG TAB PO SCH (19:22)
[2021-04-13] VITALS (18 sets, daily range): BP systolic 52–152; BP diastolic 31–91
[2021-04-13 06:52] LABS: BASOPHILS % 0.5 % (0.0-1.0); EOSINOPHILS # (AUTO) 0.4 (0.0-0.4); EOSINOPHILS % 4.7 % (0.0-6.0); HEMOGLOBIN 11.9 g/dL (14.0-18.0); LYMPHOCYTES # (AUTO) 1.5 (1.0-3.2); LYMPHOCYTES % 20.1 % (18.0-39.1); MEAN CORPUSCULAR HEMOGLOBIN 32.2 pg (28-32); MEAN CORPUSCULAR HGB CONC 33.1 g/dL (31-35); MEAN CORPUSCULAR VOLUME 97.3 fL (81-99); MONOCYTES # (AUTO) 0.5 (0.2-0.8); MONOCYTES % 6.4 % (4.4-11.3); NEUTROPHILS % 67.4 % (38.7-80.0); PLATELET COUNT 307 x10e3/uL (140-360); RED CELL DISTRIBUTION WIDTH 15.9 % (11.7-14.4)
[2021-04-13 07:18] LABS: ALBUMIN 2.7 g/dL (3.5-5.0); ALBUMIN/GLOBULIN RATIO 0.8 (0.8-2.0); ANION GAP 11.5 mmol/L (8-16); CALCIUM 8.8 mg/dL (8.4-10.2); CREATININE, SERUM 1.16 mg/dL (0.72-1.25); POTASSIUM 3.5 mmol/L (3.5-5.1)
[2021-04-13] MEDS: METOCLOPRAMIDE HCL 10 MG/2ML VIAL IV SCH ×4 (07:30→22:05)
[2021-04-13] MEDS: PANTOPRAZOLE SOD 40 MG TABEC PO SCH (07:30)
[2021-04-13] MEDS ORDERED: FENTANYL 2000MCG/NS 250 250 ML IV SCH (08:30)
[2021-04-13] MEDS ORDERED: ROCURONIUM 1250MG/NS 250 250 ML IV PRN (08:30)
[2021-04-13] MEDS ORDERED: MIDAZOLAM HCL 5MG/ML 10ML VIAL 100 ML IV PRN (08:30)
[2021-04-13] MEDS: SODIUM BICARBONATE 650 MG TAB PO SCH (09:00)
[2021-04-13] MEDS: ASCORBIC ACID 500 MG TAB PO SCH (09:00)
[2021-04-13] MEDS: QUETIAPINE FUMARATE 25 MG TAB PO SCH ×2 (09:00→17:00)
[2021-04-13] MEDS: CHOLECALCIFEROL 1,000 UNIT TAB PO SCH (09:00)
[2021-04-13] MEDS: ZINC SULFATE 220 MG CAP PO SCH (09:00)
[2021-04-13] MEDS: ALLOPURINOL 100 MG TAB PO SCH (09:00)
[2021-04-13] MEDS: SENNOSIDES 8.6 MG TAB PO SCH (09:00)
[2021-04-13 09:20] LABS: BAND NEUTROPHILS % (MANUAL) 13 %; EOSINOPHILS % (MANUAL) 7 % (0-7); LYMPHOCYTES % (MANUAL) 26 % (19-48); MONOCYTES % (MANUAL) 2 % (3.4-9.0); NEUTROPHILS % (MANUAL) 50 % (40-74); NUCLEATED RED BLOOD CELLS 4
[2021-04-13 09:22] LABS: PLATELET ESTIMATE ADEQUATE; PLATELET MORPHOLOGY COMMENT NORMAL; RBC MORPHOLOGY COMMENT NORMAL
[2021-04-13] MEDS ORDERED: VASOPRESSIN 60 UNIT in DEXTROSE 5% 50ML 57 ML IV PRN (12:00)
[2021-04-13 12:07] LABS: ABG HCO3 20 mmol/L (22-26); ABG PCO2 29 mmHg (35-45); ABG PH 7.43 (7.35-7.45); ABG PO2 515 mmHg (80-105); ABG TCO2 21
[2021-04-13] MEDS ORDERED: SODIUM CHLORIDE 0.9% 50ML 50 ML ONE (12:37)
[2021-04-13] MEDS ORDERED: IOPAMIDOL 370 MG/ML 200 ML INFUS..BTL INJ ONE (12:38)
[2021-04-13] MEDS ORDERED: Vancomycin IV 1 GM in SODIUM CHLORIDE 0.9% 250ML 250 ML IV ONE (13:15)
[2021-04-13] MEDS: DESMOPRESSIN ACETATE 5 ML SPRAY NS SCH ×3 (13:29→22:05)
[2021-04-13] MEDS: LEVETIRACETAM 500MG/5ML VIAL 500 MG in SODIUM CHLORIDE 0.9% 100 ML IV SCH (14:11)
[2021-04-13] MEDS ORDERED: SODIUM CHLORIDE 0.9% 1000ML 1,000 ML IV ONE (14:30)
[2021-04-13] MEDS ORDERED: NOREPINEPHRINE 8 MG/D5W 250 ML 250 ML ONE (14:32)
[2021-04-13] MEDS: CEFEPIME 1 GM in SODIUM CHLORIDE 0.9% 50ML 50 ML IV SCH ×2 (19:18→22:27)
[2021-04-13 19:47] LABS: BASOPHILS # (AUTO) 0.1 (0.0-0.1); BASOPHILS % 0.7 % (0.0-1.0); EOSINOPHILS # (AUTO) 0.3 (0.0-0.4); EOSINOPHILS % 2.6 % (0.0-6.0); HEMATOCRIT 32.5 % (38.2-49.6); HEMOGLOBIN 10.5 g/dL (14.0-18.0); LYMPHOCYTES # (AUTO) 1.9 (1.0-3.2); LYMPHOCYTES % 15.9 % (18.0-39.1); MEAN CORPUSCULAR HEMOGLOBIN 31.7 pg (28-32); MEAN CORPUSCULAR HGB CONC 32.3 g/dL (31-35); MEAN CORPUSCULAR VOLUME 98.2 fL (81-99); MONOCYTES # (AUTO) 0.7 (0.2-0.8); MONOCYTES % 5.5 % (4.4-11.3); NEUTROPHILS # (AUTO) 8.8 (2.1-6.9); NEUTROPHILS % 73.4 % (38.7-80.0); PLATELET COUNT 190 x10e3/uL (140-360); RED BLOOD COUNT 3.31 x10e6/uL (4.3-5.7); RED CELL DISTRIBUTION WIDTH 15.9 % (11.7-14.4)
[2021-04-13] MEDS: NOREPINEPHRINE 8 MG/D5W 250 ML 250 ML IV SCH ×4 (19:48→22:27)
[2021-04-13 20:12] LABS: BAND NEUTROPHILS % (MANUAL) 21 %; EOSINOPHILS % (MANUAL) 2 % (0-7); LYMPHOCYTES % (MANUAL) 18 % (19-48); METAMYELOCYTES % (MANUAL) 2 % (0-0); MONOCYTES % (MANUAL) 8 % (3.4-9.0); MYELOCYTES % (MANUAL) 2 % (0-0); NEUTROPHILS % (MANUAL) 47 % (40-74); NUCLEATED RED BLOOD CELLS 5
[2021-04-13 20:15] LABS: PLATELET ESTIMATE ADEQUATE; PLATELET MORPHOLOGY COMMENT NORMAL
[2021-04-13 21:40] LABS: ALBUMIN 2.5 g/dL (3.5-5.0); ALBUMIN/GLOBULIN RATIO 0.7 (0.8-2.0); ANION GAP 16.4 mmol/L (8-16); CALCIUM 8.5 mg/dL (8.4-10.2); CREATININE, SERUM 2.21 mg/dL (0.72-1.25); POTASSIUM 3.4 mmol/L (3.5-5.1)
[2021-04-14] VITALS (26 sets, daily range): BP systolic 71–116; BP diastolic 42–80
[2021-04-14] MEDS: NOREPINEPHRINE 8 MG/D5W 250 ML 250 ML IV SCH ×2 (01:51→23:13)
[2021-04-14] MEDS: CEFEPIME 1 GM in SODIUM CHLORIDE 0.9% 50ML 50 ML IV SCH (05:23)
[2021-04-14] MEDS ORDERED: LORAZEPAM INJ 2 MG/ML VIAL ONE (05:52)
[2021-04-14] MEDS ORDERED: NOREPINEPHRINE 8 MG/D5W 250 ML 250 ML ONE (06:17)
[2021-04-14] MEDS ORDERED: DEXTROSE 50% SYRINGE 50 ML IV ONE (06:17)
[2021-04-14] MEDS: LORAZEPAM INJ 2 MG/ML VIAL IV PRN ×2 (06:20→06:21)
[2021-04-14 06:29] LABS: BASOPHILS # (AUTO) 0.2 (0.0-0.1); BASOPHILS % 0.9 % (0.0-1.0); EOSINOPHILS # (AUTO) 0.4 (0.0-0.4); EOSINOPHILS % 2.8 % (0.0-6.0); HEMOGLOBIN 11.9 g/dL (14.0-18.0); LYMPHOCYTES # (AUTO) 3.2 (1.0-3.2); LYMPHOCYTES % 19.9 % (18.0-39.1); MEAN CORPUSCULAR HEMOGLOBIN 32.1 pg (28-32); MEAN CORPUSCULAR HGB CONC 33.1 g/dL (31-35); MONOCYTES % 6.4 % (4.4-11.3); NEUTROPHILS # (AUTO) 10.8 (2.1-6.9); NEUTROPHILS % 67.7 % (38.7-80.0); PLATELET COUNT 359 x10e3/uL (140-360); RED BLOOD COUNT 3.71 x10e6/uL (4.3-5.7)
[2021-04-14 06:52] LABS: ALBUMIN 2.5 g/dL (3.5-5.0); ALBUMIN/GLOBULIN RATIO 0.6 (0.8-2.0); ANION GAP 17.4 mmol/L (8-16); CALCIUM 8.2 mg/dL (8.4-10.2); CREATININE, SERUM 2.49 mg/dL (0.72-1.25)
[2021-04-14 07:05] LABS: POTASSIUM 5.4 mmol/L (3.5-5.1)
[2021-04-14] MEDS: METOCLOPRAMIDE HCL 10 MG/2ML VIAL IV SCH ×4 (08:15→22:06)
[2021-04-14] MEDS: SODIUM BICARBONATE 650 MG TAB PO SCH ×2 (08:15→09:34)
[2021-04-14] MEDS: LEVETIRACETAM 500MG/5ML VIAL 500 MG in SODIUM CHLORIDE 0.9% 100 ML IV SCH (08:15)
[2021-04-14] MEDS: PANTOPRAZOLE SOD 40 MG TABEC PO SCH (08:15)
[2021-04-14 08:16] LABS: ABG HCO3 14 mmol/L (22-26); ABG PCO2 23 mmHg (35-45); ABG PH 7.41 (7.35-7.45); ABG PO2 79 mmHg (80-105); ABG TCO2 15
[2021-04-14] MEDS: SENNOSIDES 8.6 MG TAB PO SCH (08:18)
[2021-04-14] MEDS: ASCORBIC ACID 500 MG TAB PO SCH (08:18)
[2021-04-14] MEDS: DESMOPRESSIN ACETATE 5 ML SPRAY NS SCH (08:18)
[2021-04-14] MEDS: ZINC SULFATE 220 MG CAP PO SCH (08:18)
[2021-04-14] MEDS: CHOLECALCIFEROL 1,000 UNIT TAB PO SCH (08:20)
[2021-04-14] MEDS ORDERED: SODIUM CHLORIDE 0.9% 100 ML ONE (08:21)
[2021-04-14 09:18] LABS: BAND NEUTROPHILS % (MANUAL) 7 %; EOSINOPHILS % (MANUAL) 4 % (0-7); LYMPHOCYTES % (MANUAL) 20 % (19-48); MONOCYTES % (MANUAL) 7 % (3.4-9.0); NEUTROPHILS % (MANUAL) 62 % (40-74); NUCLEATED RED BLOOD CELLS 2
[2021-04-14 09:19] LABS: ANISOCYTOSIS SLIGHT; PLATELET ESTIMATE ADEQUATE; PLATELET MORPHOLOGY COMMENT NORMAL; RBC MORPHOLOGY COMMENT NORMAL
[2021-04-14] MEDS: ALLOPURINOL 100 MG TAB PO SCH (09:32)
[2021-04-14] MEDS: SODIUM BICARBONATE 8.4% SYRING 150 ML in DEXTROSE 5% 1,000 ML IV SCH (09:32)
[2021-04-14] MEDS: METRONIDAZOLE 500MG/NS 100ML 100 ML IV SCH ×2 (11:03→17:44)
[2021-04-14] MEDS: LINEZOLID 600 MG/D5W 300ML 300 ML IV SCH ×2 (11:03→22:10)
[2021-04-14] MEDS ORDERED: BUMETANIDE INJ 0.25MG/ML 4ML VIAL IV ONE (11:30)
[2021-04-14] MEDS ORDERED: LACTULOSE SYRUP 20 GM/30 ML UDC NG ONE (11:45)
[2021-04-14] MEDS ORDERED: SOD POLYSTYRENE SULFONATE SUSP 15 GM/60 ML BTL NG ONE (11:45)
[2021-04-14 13:36] LABS: ABG HCO3 17 mmol/L (22-26); ABG PCO2 22 mmHg (35-45); ABG PO2 109 mmHg (80-105); ABG TCO2 18
[2021-04-14] MEDS: MEROPENEM 500 MG in SODIUM CHLORIDE 0.9% 50ML 50 ML IV SCH (14:20)
[2021-04-14] MEDS ORDERED: SODIUM CHLORIDE 0.9% 50ML 100 ML ONE (14:27)
[2021-04-14] MEDS ORDERED: MEROPENEM 500 MG VIAL ONE (14:28)
[2021-04-14 16:30] LABS: CLARITY,URINE CLEAR (CLEAR); COLOR,URINE YELLOW (YELLOW); KETONES,URINE NEGATIVE (NEGATIVE); LEUKOCYTE ESTERASE ,URINE NEGATIVE (NEGATIVE); NITRITE,URINE NEGATIVE (NEGATIVE); PROTEIN,URINE DIPSTICK NEGATIVE (NEGATIVE); URINE UROBILINOGEN 0.2 mg/dL (0.2 - 1)
[2021-04-14 16:45] LABS: BACTERIA,URINE FEW /HPF; HYALINE CASTS 0-1 (0-1); RBC,URINE 0-5 /HPF (0-5)
[2021-04-15] VITALS (26 sets, daily range): BP systolic 80–139; BP diastolic 51–96
[2021-04-15] MEDS: SODIUM BICARBONATE 8.4% SYRING 150 ML in DEXTROSE 5% 1,000 ML IV SCH (00:45)
[2021-04-15] MEDS: METRONIDAZOLE 500MG/NS 100ML 100 ML IV SCH ×2 (01:11→08:43)
[2021-04-15] MEDS: MEROPENEM 500 MG in SODIUM CHLORIDE 0.9% 50ML 50 ML IV SCH ×2 (02:15→14:51)
[2021-04-15] MEDS: NOREPINEPHRINE 8 MG/D5W 250 ML 250 ML IV SCH ×6 (02:21→23:26)
[2021-04-15 06:21] LABS: HEMATOCRIT 31.1 % (38.2-49.6); HEMOGLOBIN 10.6 g/dL (14.0-18.0); MEAN CORPUSCULAR HEMOGLOBIN 32.1 pg (28-32); MEAN CORPUSCULAR HGB CONC 34.1 g/dL (31-35); MEAN CORPUSCULAR VOLUME 94.2 fL (81-99); RED CELL DISTRIBUTION WIDTH 15.9 % (11.7-14.4)
[2021-04-15 06:22] LABS: BASOPHILS # (AUTO) 0.1 (0.0-0.1); BASOPHILS % 0.8 % (0.0-1.0); EOSINOPHILS # (AUTO) 0.3 (0.0-0.4); EOSINOPHILS % 1.6 % (0.0-6.0); LYMPHOCYTES # (AUTO) 2.9 (1.0-3.2); LYMPHOCYTES % 15.9 % (18.0-39.1); MONOCYTES # (AUTO) 0.9 (0.2-0.8); MONOCYTES % 4.8 % (4.4-11.3); NEUTROPHILS # (AUTO) 13.6 (2.1-6.9); NEUTROPHILS % 73.9 % (38.7-80.0); PLATELET COUNT 333 x10e3/uL (140-360)
[2021-04-15 06:48] LABS: ALBUMIN 2.4 g/dL (3.5-5.0); ALBUMIN/GLOBULIN RATIO 0.5 (0.8-2.0); ANION GAP 22.7 mmol/L (8-16); CALCIUM 8.7 mg/dL (8.4-10.2); CREATININE, SERUM 2.48 mg/dL (0.72-1.25)
[2021-04-15 07:09] LABS: POTASSIUM 2.7 mmol/L (3.5-5.1)
[2021-04-15] MEDS: PANTOPRAZOLE SOD 40 MG TABEC PO SCH (07:30)
[2021-04-15] MEDS: METOCLOPRAMIDE HCL 10 MG/2ML VIAL IV SCH ×4 (07:30→21:50)
[2021-04-15] MEDS ORDERED: POTASSIUM CHLORIDE 20MEQ/100ML 300 ML IV ONE (07:45)
[2021-04-15] MEDS ORDERED: MAGNESIUM SULFATE 2GM/50ML 50 ML IV ONE (08:15)
[2021-04-15] MEDS ORDERED: SODIUM CHLORIDE 0.9% 100 ML ONE (08:23)
[2021-04-15] MEDS: CHOLECALCIFEROL 1,000 UNIT TAB PO SCH (08:42)
[2021-04-15] MEDS: SENNOSIDES 8.6 MG TAB PO SCH (08:42)
[2021-04-15] MEDS: LEVETIRACETAM 500MG/5ML VIAL 500 MG in SODIUM CHLORIDE 0.9% 100 ML IV SCH (08:42)
[2021-04-15] MEDS: ZINC SULFATE 220 MG CAP PO SCH (08:42)
[2021-04-15] MEDS: ASCORBIC ACID 500 MG TAB PO SCH (08:42)
[2021-04-15] MEDS: ALLOPURINOL 100 MG TAB PO SCH (08:42)
[2021-04-15 08:43] LABS: ABG HCO3 27 mmol/L (22-26); ABG PCO2 25 mmHg (35-45); ABG PH 7.65 (7.35-7.45); ABG PO2 128 mmHg (80-105); ABG TCO2 28
[2021-04-15] MEDS ORDERED: DESMOPRESSIN ACETATE 5 ML SPRAY NS SCH (09:00)
[2021-04-15] MEDS: DEXTROSE 5%/0.45% SOD CHL 1,000 ML IV SCH ×2 (09:30→21:50)
[2021-04-15 10:57] LABS: BAND NEUTROPHILS % (MANUAL) 10 %; EOSINOPHILS % (MANUAL) 1 % (0-7); LYMPHOCYTES % (MANUAL) 27 % (19-48); METAMYELOCYTES % (MANUAL) 1 % (0-0); MONOCYTES % (MANUAL) 4 % (3.4-9.0); NEUTROPHILS % (MANUAL) 57 % (40-74); NUCLEATED RED BLOOD CELLS 7
[2021-04-15 10:59] LABS: PLATELET ESTIMATE ADEQUATE; PLATELET MORPHOLOGY COMMENT FEW GIANT; RBC MORPHOLOGY COMMENT NORMAL
[2021-04-15] MEDS: LINEZOLID 600 MG/D5W 300ML 300 ML IV SCH ×2 (11:06→21:50)
[2021-04-15] MEDS: ENOXAPARIN 30 MG/0.3 ML SYR SC SCH (16:18)
[2021-04-16] VITALS (27 sets, daily range): BP systolic 82–118; BP diastolic 55–81
[2021-04-16] MEDS: MEROPENEM 500 MG in SODIUM CHLORIDE 0.9% 50ML 50 ML IV SCH ×2 (02:04→15:04)
[2021-04-16] MEDS: NOREPINEPHRINE 8 MG/D5W 250 ML 250 ML IV SCH ×3 (02:04→23:11)
[2021-04-16] MEDS ORDERED: BUMETANIDE INJ 0.25MG/ML 4ML VIAL IV ONE ×2 (05:30→08:30)
[2021-04-16 06:29] LABS: MAGNESIUM 2.1 MG/DL (1.3-2.1); PHOSPHORUS 5.8 MG/DL (2.3-4.7)
[2021-04-16 06:55] LABS: BASOPHILS # (AUTO) 0.1 (0.0-0.1); EOSINOPHILS # (AUTO) 0.3 (0.0-0.4); EOSINOPHILS % 2.2 % (0.0-6.0); HEMATOCRIT 36.2 % (38.2-49.6); HEMOGLOBIN 11.4 g/dL (14.0-18.0); LYMPHOCYTES # (AUTO) 2.5 (1.0-3.2); LYMPHOCYTES % 21.4 % (18.0-39.1); MEAN CORPUSCULAR HEMOGLOBIN 31.4 pg (28-32); MEAN CORPUSCULAR HGB CONC 31.5 g/dL (31-35); MEAN CORPUSCULAR VOLUME 99.7 fL (81-99); MONOCYTES % 8.9 % (4.4-11.3); NEUTROPHILS # (AUTO) 7.4 (2.1-6.9); NEUTROPHILS % 63.7 % (38.7-80.0); PLATELET COUNT 192 x10e3/uL (140-360); RED BLOOD COUNT 3.63 x10e6/uL (4.3-5.7); RED CELL DISTRIBUTION WIDTH 16.1 % (11.7-14.4)
[2021-04-16 07:07] LABS: ALBUMIN 2.3 g/dL (3.5-5.0); ALBUMIN/GLOBULIN RATIO 0.5 (0.8-2.0); ANION GAP 24.6 mmol/L (8-16); CREATININE, SERUM 2.41 mg/dL (0.72-1.25); POTASSIUM 3.6 mmol/L (3.5-5.1)
[2021-04-16] MEDS: PANTOPRAZOLE SOD 40 MG TABEC PO SCH (08:24)
[2021-04-16] MEDS: METOCLOPRAMIDE HCL 10 MG/2ML VIAL IV SCH ×4 (08:24→21:57)
[2021-04-16] MEDS: ZINC SULFATE 220 MG CAP PO SCH (08:29)
[2021-04-16] MEDS: SENNOSIDES 8.6 MG TAB PO SCH (08:29)
[2021-04-16] MEDS: ASCORBIC ACID 500 MG TAB PO SCH (08:29)
[2021-04-16] MEDS: LEVETIRACETAM 500MG/5ML VIAL 500 MG in SODIUM CHLORIDE 0.9% 100 ML IV SCH (08:29)
[2021-04-16] MEDS: CHOLECALCIFEROL 1,000 UNIT TAB PO SCH (08:29)
[2021-04-16] MEDS: SODIUM CHLORIDE 0.9% 1000ML 1,000 ML IV SCH (08:30)
[2021-04-16 08:31] LABS: BAND NEUTROPHILS % (MANUAL) 6 %; EOSINOPHILS % (MANUAL) 2 % (0-7); LYMPHOCYTES % (MANUAL) 12 % (19-48); MONOCYTES % (MANUAL) 8 % (3.4-9.0); NEUTROPHILS % (MANUAL) 72 % (40-74); NUCLEATED RED BLOOD CELLS 7
[2021-04-16 08:32] LABS: PLATELET ESTIMATE ADEQUATE; PLATELET MORPHOLOGY COMMENT MODERATE GIANT; RBC MORPHOLOGY COMMENT NORMAL
[2021-04-16 09:17] LABS: ABG HCO3 31 mmol/L (22-26); ABG PCO2 54 mmHg (35-45); ABG PH 7.36 (7.35-7.45); ABG PO2 86 mmHg (80-105); ABG TCO2 32
[2021-04-16] MEDS: ALLOPURINOL 100 MG TAB PO SCH (11:11)
[2021-04-16] MEDS: LINEZOLID 600 MG/D5W 300ML 300 ML IV SCH ×2 (11:11→23:10)
[2021-04-16] MEDS: SODIUM CHLORIDE 1 GM TAB NG SCH ×3 (11:11→21:57)
[2021-04-16] MEDS: ONDANSETRON HCL INJ 2MG/ML 2ML 2 MG/ML VIAL IV PRN (17:18)
[2021-04-16] MEDS: ENOXAPARIN 30 MG/0.3 ML SYR SC SCH (17:18)
[2021-04-16] MEDS ORDERED: BISACODYL 10 MG SUPP PR PRN (17:30)
[2021-04-17] VITALS (20 sets, daily range): BP systolic 81–108; BP diastolic 50–77
[2021-04-17] MEDS: NOREPINEPHRINE 8 MG/D5W 250 ML 250 ML IV SCH ×3 (00:48→20:49)
[2021-04-17] MEDS: MEROPENEM 500 MG in SODIUM CHLORIDE 0.9% 50ML 50 ML IV SCH ×2 (02:41→14:09)
[2021-04-17] MEDS: SODIUM CHLORIDE 0.9% 1000ML 1,000 ML IV SCH (02:41)
[2021-04-17 05:30] LABS: BASOPHILS # (AUTO) 0.1 (0.0-0.1); BASOPHILS % 0.8 % (0.0-1.0); EOSINOPHILS # (AUTO) 0.3 (0.0-0.4); HEMATOCRIT 30.3 % (38.2-49.6); HEMOGLOBIN 9.6 g/dL (14.0-18.0); LYMPHOCYTES # (AUTO) 1.4 (1.0-3.2); LYMPHOCYTES % 13.8 % (18.0-39.1); MEAN CORPUSCULAR HEMOGLOBIN 31.2 pg (28-32); MEAN CORPUSCULAR HGB CONC 31.7 g/dL (31-35); MEAN CORPUSCULAR VOLUME 98.4 fL (81-99); MONOCYTES # (AUTO) 1.2 (0.2-0.8); MONOCYTES % 11.3 % (4.4-11.3); NEUTROPHILS % 67.5 % (38.7-80.0); PLATELET COUNT 171 x10e3/uL (140-360); RED BLOOD COUNT 3.08 x10e6/uL (4.3-5.7); RED CELL DISTRIBUTION WIDTH 15.9 % (11.7-14.4)
[2021-04-17 06:14] LABS: ALBUMIN 1.8 g/dL (3.5-5.0); ALBUMIN/GLOBULIN RATIO 0.5 (0.8-2.0); ANION GAP 16.6 mmol/L (8-16); CALCIUM 7.3 mg/dL (8.4-10.2); CREATININE, SERUM 1.7 mg/dL (0.72-1.25)
[2021-04-17 06:17] LABS: POTASSIUM 2.6 mmol/L (3.5-5.1)
[2021-04-17] MEDS: METOCLOPRAMIDE HCL 10 MG/2ML VIAL IV SCH ×4 (06:35→20:46)
[2021-04-17] MEDS: PANTOPRAZOLE SOD 40 MG TABEC PO SCH (06:35)
[2021-04-17 08:45] LABS: ABG HCO3 36 mmol/L (22-26); ABG PCO2 51 mmHg (35-45); ABG PH 7.45 (7.35-7.45); ABG PO2 140 mmHg (80-105); ABG TCO2 37
[2021-04-17] MEDS ORDERED: POTASSIUM CHLORIDE 20MEQ/100ML 300 ML IV ONE (09:00)
[2021-04-17] MEDS: ONDANSETRON HCL INJ 2MG/ML 2ML 2 MG/ML VIAL IV PRN (09:47)
[2021-04-17] MEDS: LEVETIRACETAM 500MG/5ML VIAL 500 MG in SODIUM CHLORIDE 0.9% 100 ML IV SCH (09:48)
[2021-04-17] MEDS: ZINC SULFATE 220 MG CAP PO SCH (09:48)
[2021-04-17] MEDS: CHOLECALCIFEROL 1,000 UNIT TAB PO SCH (09:48)
[2021-04-17] MEDS: SENNOSIDES 8.6 MG TAB PO SCH (09:48)
[2021-04-17] MEDS: ALLOPURINOL 100 MG TAB PO SCH (09:48)
[2021-04-17] MEDS: ASCORBIC ACID 500 MG TAB PO SCH (09:48)
[2021-04-17] MEDS: SODIUM CHLORIDE 1 GM TAB NG SCH ×3 (09:48→20:49)
[2021-04-17] MEDS ORDERED: SODIUM CHLORIDE 0.9% 1000ML 1,000 ML IV STA (10:28)
[2021-04-17] MEDS: LINEZOLID 600 MG/D5W 300ML 300 ML IV SCH ×2 (12:46→22:02)
[2021-04-17] MEDS: VANCOMYCIN 250MG/5ML ORAL SOLN NG SCH ×2 (14:09→20:49)
[2021-04-17] MEDS: ENOXAPARIN 30 MG/0.3 ML SYR SC SCH (16:38)
[2021-04-18] VITALS (21 sets, daily range): BP systolic 81–98; BP diastolic 36–58
[2021-04-18] MEDS: SODIUM CHLORIDE 0.9% 1000ML 1,000 ML IV SCH ×2 (02:46→20:40)
[2021-04-18] MEDS: MEROPENEM 500 MG in SODIUM CHLORIDE 0.9% 50ML 50 ML IV SCH ×2 (03:38→16:00)
[2021-04-18] MEDS: VANCOMYCIN 250MG/5ML ORAL SOLN NG SCH (04:44)
[2021-04-18 05:30] LABS: BASOPHILS # (AUTO) 0.1 (0.0-0.1); BASOPHILS % 1.1 % (0.0-1.0); EOSINOPHILS # (AUTO) 0.3 (0.0-0.4); EOSINOPHILS % 3.5 % (0.0-6.0); HEMATOCRIT 34.9 % (38.2-49.6); HEMOGLOBIN 11.2 g/dL (14.0-18.0); LYMPHOCYTES # (AUTO) 1.3 (1.0-3.2); MEAN CORPUSCULAR HEMOGLOBIN 31.5 pg (28-32); MEAN CORPUSCULAR HGB CONC 32.1 g/dL (31-35); MEAN CORPUSCULAR VOLUME 98.3 fL (81-99); MONOCYTES # (AUTO) 0.8 (0.2-0.8); MONOCYTES % 9.1 % (4.4-11.3); NEUTROPHILS # (AUTO) 6.1 (2.1-6.9); PLATELET COUNT 178 x10e3/uL (140-360); RED BLOOD COUNT 3.55 x10e6/uL (4.3-5.7); RED CELL DISTRIBUTION WIDTH 15.6 % (11.7-14.4)
[2021-04-18 06:04] LABS: ALBUMIN 1.9 g/dL (3.5-5.0); ALBUMIN/GLOBULIN RATIO 0.5 (0.8-2.0); ANION GAP 17.2 mmol/L (8-16); CALCIUM 8.1 mg/dL (8.4-10.2); CREATININE, SERUM 1.1 mg/dL (0.72-1.25); POTASSIUM 3.2 mmol/L (3.5-5.1)
[2021-04-18] MEDS ORDERED: POTASSIUM CHLORIDE 20MEQ/100ML 200 ML IV ONE (07:30)
[2021-04-18] MEDS: METOCLOPRAMIDE HCL 10 MG/2ML VIAL IV SCH ×5 (08:30→21:45)
[2021-04-18 08:38] LABS: ABG HCO3 33 mmol/L (22-26); ABG PCO2 44 mmHg (35-45); ABG PH 7.48 (7.35-7.45); ABG PO2 121 mmHg (80-105); ABG TCO2 34
[2021-04-18] MEDS: PANTOPRAZOLE SOD 40 MG TABEC PO SCH (08:54)
[2021-04-18] MEDS: ASCORBIC ACID 500 MG TAB PO SCH (08:55)
[2021-04-18] MEDS: ALLOPURINOL 100 MG TAB PO SCH (08:55)
[2021-04-18] MEDS: ZINC SULFATE 220 MG CAP PO SCH (08:55)
[2021-04-18] MEDS: CHOLECALCIFEROL 1,000 UNIT TAB PO SCH (08:55)
[2021-04-18] MEDS: SENNOSIDES 8.6 MG TAB PO SCH (08:55)
[2021-04-18] MEDS: SODIUM CHLORIDE 1 GM TAB NG SCH ×3 (10:00→21:45)
[2021-04-18] MEDS: LINEZOLID 600 MG/D5W 300ML 300 ML IV SCH (10:24)
[2021-04-18] MEDS: LEVETIRACETAM 500MG/5ML VIAL 500 MG in SODIUM CHLORIDE 0.9% 100 ML IV SCH (11:30)
[2021-04-18] MEDS: ENOXAPARIN 30 MG/0.3 ML SYR SC SCH (17:50)
[2021-04-19] VITALS (25 sets, daily range): BP systolic 91–110; BP diastolic 52–68
[2021-04-19] MEDS: NOREPINEPHRINE 8 MG/D5W 250 ML 250 ML IV SCH (01:29)
[2021-04-19] MEDS: MEROPENEM 500 MG in SODIUM CHLORIDE 0.9% 50ML 50 ML IV SCH ×2 (03:23→13:59)
[2021-04-19 06:31] LABS: BASOPHILS # (AUTO) 0.1 (0.0-0.1); EOSINOPHILS # (AUTO) 0.3 (0.0-0.4); EOSINOPHILS % 3.1 % (0.0-6.0); HEMATOCRIT 33.6 % (38.2-49.6); HEMOGLOBIN 10.9 g/dL (14.0-18.0); LYMPHOCYTES # (AUTO) 1.5 (1.0-3.2); LYMPHOCYTES % 14.1 % (18.0-39.1); MEAN CORPUSCULAR HEMOGLOBIN 32.1 pg (28-32); MEAN CORPUSCULAR HGB CONC 32.4 g/dL (31-35); MEAN CORPUSCULAR VOLUME 98.8 fL (81-99); MONOCYTES # (AUTO) 0.8 (0.2-0.8); MONOCYTES % 7.2 % (4.4-11.3); NEUTROPHILS # (AUTO) 7.4 (2.1-6.9); NEUTROPHILS % 68.3 % (38.7-80.0); PLATELET COUNT 178 x10e3/uL (140-360); RED CELL DISTRIBUTION WIDTH 15.8 % (11.7-14.4)
[2021-04-19 06:54] LABS: ANION GAP 16.3 mmol/L (8-16); CALCIUM 8.9 mg/dL (8.4-10.2); CREATININE, SERUM 0.9 mg/dL (0.72-1.25); MAGNESIUM 1.8 MG/DL (1.3-2.1); POTASSIUM 3.3 mmol/L (3.5-5.1)
[2021-04-19] MEDS: METOCLOPRAMIDE HCL 10 MG/2ML VIAL IV SCH ×4 (07:00→21:10)
[2021-04-19] MEDS ORDERED: SODIUM CHLORIDE 0.9% 100 ML ONE (08:23)
[2021-04-19] MEDS: PANTOPRAZOLE SOD 40 MG TABEC PO SCH (08:30)
[2021-04-19] MEDS: LEVETIRACETAM 500MG/5ML VIAL 500 MG in SODIUM CHLORIDE 0.9% 100 ML IV SCH (08:31)
[2021-04-19] MEDS: ALLOPURINOL 100 MG TAB PO SCH (08:31)
[2021-04-19] MEDS: ZINC SULFATE 220 MG CAP PO SCH (08:31)
[2021-04-19] MEDS: SENNOSIDES 8.6 MG TAB PO SCH (08:32)
[2021-04-19] MEDS: SODIUM CHLORIDE 1 GM TAB NG SCH (08:32)
[2021-04-19] MEDS: CHOLECALCIFEROL 1,000 UNIT TAB PO SCH (08:32)
[2021-04-19] MEDS: ASCORBIC ACID 500 MG TAB PO SCH (08:32)
[2021-04-19] MEDS: SODIUM CHLORIDE 0.9% 1000ML 1,000 ML IV SCH (15:53)
[2021-04-19] MEDS: ENOXAPARIN 30 MG/0.3 ML SYR SC SCH (17:18)
[2021-04-19] MEDS ORDERED: POTASSIUM CHLORIDE 20MEQ/100ML 200 ML IV ONE (19:30)
[2021-04-20] VITALS (25 sets, daily range): BP systolic 80–105; BP diastolic 41–68
[2021-04-20] MEDS: NOREPINEPHRINE 8 MG/D5W 250 ML 250 ML IV SCH (06:13)
[2021-04-20 06:49] LABS: BASOPHILS # (AUTO) 0.1 (0.0-0.1); EOSINOPHILS # (AUTO) 0.3 (0.0-0.4); EOSINOPHILS % 3.1 % (0.0-6.0); HEMATOCRIT 36.1 % (38.2-49.6); LYMPHOCYTES # (AUTO) 1.6 (1.0-3.2); LYMPHOCYTES % 19.9 % (18.0-39.1); MEAN CORPUSCULAR HEMOGLOBIN 31.6 pg (28-32); MEAN CORPUSCULAR HGB CONC 30.5 g/dL (31-35); MEAN CORPUSCULAR VOLUME 103.7 fL (81-99); MONOCYTES # (AUTO) 0.6 (0.2-0.8); MONOCYTES % 6.9 % (4.4-11.3); NEUTROPHILS # (AUTO) 5.1 (2.1-6.9); NEUTROPHILS % 63.7 % (38.7-80.0); PLATELET COUNT 146 x10e3/uL (140-360); RED BLOOD COUNT 3.48 x10e6/uL (4.3-5.7); RED CELL DISTRIBUTION WIDTH 16.4 % (11.7-14.4)
[2021-04-20 07:20] LABS: ALBUMIN 1.8 g/dL (3.5-5.0); ALBUMIN/GLOBULIN RATIO 0.4 (0.8-2.0); ANION GAP 15.3 mmol/L (8-16); CALCIUM 9.3 mg/dL (8.4-10.2); CREATININE, SERUM 0.81 mg/dL (0.72-1.25); POTASSIUM 4.3 mmol/L (3.5-5.1)
[2021-04-20] MEDS: METOCLOPRAMIDE HCL 10 MG/2ML VIAL IV SCH ×4 (09:06→20:54)
[2021-04-20] MEDS: PANTOPRAZOLE SOD 40 MG TABEC PO SCH (09:07)
[2021-04-20] MEDS: ZINC SULFATE 220 MG CAP PO SCH (09:08)
[2021-04-20] MEDS: LEVETIRACETAM 500MG/5ML VIAL 500 MG in SODIUM CHLORIDE 0.9% 100 ML IV SCH (09:08)
[2021-04-20] MEDS: SENNOSIDES 8.6 MG TAB PO SCH (09:08)
[2021-04-20] MEDS: CHOLECALCIFEROL 1,000 UNIT TAB PO SCH (09:08)
[2021-04-20] MEDS: ASCORBIC ACID 500 MG TAB PO SCH (09:08)
[2021-04-20] MEDS: ALLOPURINOL 100 MG TAB PO SCH (09:09)
[2021-04-20] MEDS: SODIUM CHLORIDE 0.9% 1000ML 1,000 ML IV SCH (12:00)
[2021-04-20] MEDS: ENOXAPARIN 30 MG/0.3 ML SYR SC SCH (17:00)
[2021-04-21] VITALS (27 sets, daily range): BP systolic 81–96; BP diastolic 47–65
[2021-04-21] MEDS: NOREPINEPHRINE 8 MG/D5W 250 ML 250 ML IV SCH ×4 (03:38→21:22)
[2021-04-21 06:35] LABS: BASOPHILS # (AUTO) 0.1 (0.0-0.1); EOSINOPHILS # (AUTO) 0.3 (0.0-0.4); EOSINOPHILS % 3.5 % (0.0-6.0); HEMATOCRIT 35.8 % (38.2-49.6); HEMOGLOBIN 10.7 g/dL (14.0-18.0); LYMPHOCYTES # (AUTO) 1.9 (1.0-3.2); LYMPHOCYTES % 20.6 % (18.0-39.1); MEAN CORPUSCULAR HEMOGLOBIN 31.2 pg (28-32); MEAN CORPUSCULAR HGB CONC 29.9 g/dL (31-35); MEAN CORPUSCULAR VOLUME 104.4 fL (81-99); MONOCYTES # (AUTO) 0.4 (0.2-0.8); MONOCYTES % 3.8 % (4.4-11.3); NEUTROPHILS # (AUTO) 6.3 (2.1-6.9); NEUTROPHILS % 68.4 % (38.7-80.0); PLATELET COUNT 147 x10e3/uL (140-360); RED BLOOD COUNT 3.43 x10e6/uL (4.3-5.7); RED CELL DISTRIBUTION WIDTH 17.2 % (11.7-14.4)
[2021-04-21] MEDS: SODIUM CHLORIDE 0.9% 1000ML 1,000 ML IV SCH (06:36)
[2021-04-21 07:08] LABS: ALBUMIN 1.9 g/dL (3.5-5.0); ALBUMIN/GLOBULIN RATIO 0.5 (0.8-2.0); ANION GAP 13.9 mmol/L (8-16); CALCIUM 9.5 mg/dL (8.4-10.2); CREATININE, SERUM 0.84 mg/dL (0.72-1.25); POTASSIUM 3.9 mmol/L (3.5-5.1)
[2021-04-21] MEDS: METOCLOPRAMIDE HCL 10 MG/2ML VIAL IV SCH ×4 (08:19→21:22)
[2021-04-21] MEDS: LEVETIRACETAM 500MG/5ML VIAL 500 MG in SODIUM CHLORIDE 0.9% 100 ML IV SCH (08:19)
[2021-04-21] MEDS: CHOLECALCIFEROL 1,000 UNIT TAB PO SCH (08:58)
[2021-04-21] MEDS: ZINC SULFATE 220 MG CAP PO SCH (08:58)
[2021-04-21] MEDS: ASCORBIC ACID 500 MG TAB PO SCH (08:58)
[2021-04-21] MEDS: SENNOSIDES 8.6 MG TAB PO SCH (08:58)
[2021-04-21] MEDS: PANTOPRAZOLE SOD 40 MG TABEC PO SCH (08:58)
[2021-04-21] MEDS: ALLOPURINOL 100 MG TAB PO SCH (08:58)
[2021-04-21 09:07] LABS: EOSINOPHILS % (MANUAL) 7 % (0-7); LYMPHOCYTES % (MANUAL) 20 % (19-48); METAMYELOCYTES % (MANUAL) 1 % (0-0); MONOCYTES % (MANUAL) 5 % (3.4-9.0); MYELOCYTES % (MANUAL) 1 % (0-0); NEUTROPHILS % (MANUAL) 65 % (40-74); NUCLEATED RED BLOOD CELLS 1
[2021-04-21 09:08] LABS: ANISOCYTOSIS SLIGHT; HYPOCHROMASIA SLIGHT; PLATELET ESTIMATE ADEQUATE; PLATELET MORPHOLOGY COMMENT NORMAL; RBC MORPHOLOGY COMMENT NORMAL
[2021-04-21] MEDS ORDERED: DEXTROSE 5% 1,000 ML IV ONE (12:30)
[2021-04-21] MEDS: DEXTROSE 5% 1,000 ML IV SCH (13:07)
[2021-04-21] MEDS: DESMOPRESSIN ACETATE 5 ML SPRAY NS SCH (15:37)
[2021-04-21] MEDS: ENOXAPARIN 30 MG/0.3 ML SYR SC SCH (17:09)
[2021-04-22] VITALS (26 sets, daily range): BP systolic 83–102; BP diastolic 50–66
[2021-04-22] MEDS: DEXTROSE 5% 1,000 ML IV SCH ×3 (00:12→17:35)
[2021-04-22] MEDS: NOREPINEPHRINE 8 MG/D5W 250 ML 250 ML IV SCH ×5 (03:11→20:40)
[2021-04-22 06:30] LABS: BASOPHILS # (AUTO) 0.1 (0.0-0.1); BASOPHILS % 0.9 % (0.0-1.0); EOSINOPHILS # (AUTO) 0.3 (0.0-0.4); HEMATOCRIT 32.1 % (38.2-49.6); HEMOGLOBIN 9.8 g/dL (14.0-18.0); LYMPHOCYTES # (AUTO) 1.7 (1.0-3.2); LYMPHOCYTES % 19.8 % (18.0-39.1); MEAN CORPUSCULAR HEMOGLOBIN 32.1 pg (28-32); MEAN CORPUSCULAR HGB CONC 30.5 g/dL (31-35); MEAN CORPUSCULAR VOLUME 105.2 fL (81-99); MONOCYTES # (AUTO) 0.3 (0.2-0.8); MONOCYTES % 3.7 % (4.4-11.3); PLATELET COUNT 124 x10e3/uL (140-360); RED BLOOD COUNT 3.05 x10e6/uL (4.3-5.7); RED CELL DISTRIBUTION WIDTH 17.3 % (11.7-14.4)
[2021-04-22 07:02] LABS: ALBUMIN 1.8 g/dL (3.5-5.0); ALBUMIN/GLOBULIN RATIO 0.5 (0.8-2.0); CALCIUM 9.1 mg/dL (8.4-10.2); CREATININE, SERUM 0.79 mg/dL (0.72-1.25)
[2021-04-22] MEDS: SENNOSIDES 8.6 MG TAB PO SCH (07:24)
[2021-04-22] MEDS: ASCORBIC ACID 500 MG TAB PO SCH (08:12)
[2021-04-22] MEDS: ALLOPURINOL 100 MG TAB PO SCH (08:12)
[2021-04-22] MEDS: ZINC SULFATE 220 MG CAP PO SCH (08:12)
[2021-04-22] MEDS: CHOLECALCIFEROL 1,000 UNIT TAB PO SCH (08:12)
[2021-04-22] MEDS: DESMOPRESSIN ACETATE 5 ML SPRAY NS SCH (08:12)
[2021-04-22] MEDS: LEVETIRACETAM 500MG/5ML VIAL 500 MG in SODIUM CHLORIDE 0.9% 100 ML IV SCH (08:12)
[2021-04-22] MEDS: METOCLOPRAMIDE HCL 10 MG/2ML VIAL IV SCH ×4 (08:12→20:40)
[2021-04-22] MEDS: PANTOPRAZOLE SOD 40 MG TABEC PO SCH (08:12)
[2021-04-22] MEDS ORDERED: POTASSIUM CHLORIDE 20MEQ/100ML 300 ML IV ONE (09:15)
[2021-04-22 10:00] LABS: MAGNESIUM 1.8 MG/DL (1.3-2.1)
[2021-04-22] MEDS ORDERED: ALBUMIN 25% 12.5GM 0.25 GM/ML BTL IV ONE (10:15)
[2021-04-22 10:48] LABS: ABG HCO3 29 mmol/L (22-26); ABG PCO2 43 mmHg (35-45); ABG PH 7.43 (7.35-7.45); ABG PO2 77 mmHg (80-105); ABG TCO2 30
[2021-04-22] MEDS: ENOXAPARIN 30 MG/0.3 ML SYR SC SCH (16:40)
[2021-04-23] VITALS (25 sets, daily range): BP systolic 84–112; BP diastolic 43–74
[2021-04-23] MEDS: DEXTROSE 5% 1,000 ML IV SCH ×2 (02:53→12:07)
[2021-04-23 06:39] LABS: ALBUMIN 2.2 g/dL (3.5-5.0); ALBUMIN/GLOBULIN RATIO 0.6 (0.8-2.0); ANION GAP 18.2 mmol/L (8-16); CALCIUM 8.6 mg/dL (8.4-10.2); CREATININE, SERUM 0.74 mg/dL (0.72-1.25); POTASSIUM 3.2 mmol/L (3.5-5.1)
[2021-04-23 06:41] LABS: BASOPHILS # (AUTO) 0.1 (0.0-0.1); BASOPHILS % 0.7 % (0.0-1.0); EOSINOPHILS # (AUTO) 0.4 (0.0-0.4); EOSINOPHILS % 4.4 % (0.0-6.0); HEMATOCRIT 31.7 % (38.2-49.6); LYMPHOCYTES # (AUTO) 2.1 (1.0-3.2); LYMPHOCYTES % 22.9 % (18.0-39.1); MEAN CORPUSCULAR HEMOGLOBIN 31.9 pg (28-32); MEAN CORPUSCULAR HGB CONC 31.5 g/dL (31-35); MEAN CORPUSCULAR VOLUME 101.3 fL (81-99); MONOCYTES # (AUTO) 0.4 (0.2-0.8); MONOCYTES % 4.4 % (4.4-11.3); NEUTROPHILS % 66.6 % (38.7-80.0); PLATELET COUNT 126 x10e3/uL (140-360); RED BLOOD COUNT 3.13 x10e6/uL (4.3-5.7); RED CELL DISTRIBUTION WIDTH 16.7 % (11.7-14.4)
[2021-04-23] MEDS: METOCLOPRAMIDE HCL 10 MG/2ML VIAL IV SCH ×4 (07:30→22:18)
[2021-04-23 07:41] LABS: BAND NEUTROPHILS % (MANUAL) 1 %; EOSINOPHILS % (MANUAL) 4 % (0-7); LYMPHOCYTES % (MANUAL) 16 % (19-48); MONOCYTES % (MANUAL) 2 % (3.4-9.0); NEUTROPHILS % (MANUAL) 76 % (40-74)
[2021-04-23 07:42] LABS: PLATELET MORPHOLOGY COMMENT NORMAL; RBC MORPHOLOGY COMMENT NORMAL
[2021-04-23 07:43] LABS: PLATELET ESTIMATE SLIGHTLY DECREASED
[2021-04-23] MEDS: PANTOPRAZOLE SOD 40 MG TABEC PO SCH (08:45)
[2021-04-23] MEDS ORDERED: SODIUM CHLORIDE 0.9% 100 ML ONE (08:49)
[2021-04-23] MEDS: DESMOPRESSIN ACETATE 5 ML SPRAY NS SCH (09:02)
[2021-04-23] MEDS: LEVETIRACETAM 500MG/5ML VIAL 500 MG in SODIUM CHLORIDE 0.9% 100 ML IV SCH (09:02)
[2021-04-23] MEDS: CHOLECALCIFEROL 1,000 UNIT TAB PO SCH (09:04)
[2021-04-23] MEDS: ZINC SULFATE 220 MG CAP PO SCH (09:04)
[2021-04-23] MEDS: SENNOSIDES 8.6 MG TAB PO SCH (09:04)
[2021-04-23] MEDS: ALLOPURINOL 100 MG TAB PO SCH (09:04)
[2021-04-23] MEDS: ASCORBIC ACID 500 MG TAB PO SCH (09:04)
[2021-04-23] MEDS ORDERED: POTASSIUM CHLORIDE 20MEQ/100ML 200 ML IV ONE (12:00)
[2021-04-23] MEDS: NOREPINEPHRINE 8 MG/D5W 250 ML 250 ML IV SCH ×2 (12:08→22:20)
[2021-04-23] MEDS ORDERED: NOREPINEPHRINE 8 MG/D5W 250 ML 250 ML ONE (16:54)
[2021-04-23] MEDS: ENOXAPARIN 30 MG/0.3 ML SYR SC SCH (17:00)
[2021-04-24] VITALS (25 sets, daily range): BP systolic 76–104; BP diastolic 39–69
[2021-04-24] MEDS: DEXTROSE 5% 1,000 ML IV SCH ×3 (00:30→20:30)
[2021-04-24] MEDS: VASOPRESSIN 60 UNIT in DEXTROSE 5% 50ML 57 ML IV PRN ×2 (02:40→09:44)
[2021-04-24 06:36] LABS: BASOPHILS # (AUTO) 0.1 (0.0-0.1); BASOPHILS % 0.5 % (0.0-1.0); EOSINOPHILS # (AUTO) 0.3 (0.0-0.4); EOSINOPHILS % 2.5 % (0.0-6.0); HEMATOCRIT 28.4 % (38.2-49.6); HEMOGLOBIN 8.7 g/dL (14.0-18.0); LYMPHOCYTES # (AUTO) 1.9 (1.0-3.2); LYMPHOCYTES % 14.5 % (18.0-39.1); MEAN CORPUSCULAR HEMOGLOBIN 32.1 pg (28-32); MEAN CORPUSCULAR HGB CONC 30.6 g/dL (31-35); MEAN CORPUSCULAR VOLUME 104.8 fL (81-99); MONOCYTES # (AUTO) 0.6 (0.2-0.8); MONOCYTES % 4.5 % (4.4-11.3); NEUTROPHILS % 76.7 % (38.7-80.0); RED BLOOD COUNT 2.71 x10e6/uL (4.3-5.7); RED CELL DISTRIBUTION WIDTH 16.6 % (11.7-14.4)
[2021-04-24 06:45] LABS: PLATELET COUNT 86 x10e3/uL (140-360)
[2021-04-24] MEDS: NOREPINEPHRINE 8 MG/D5W 250 ML 250 ML IV SCH ×4 (06:54→22:33)
[2021-04-24 07:20] LABS: ALBUMIN 2.2 g/dL (3.5-5.0); ALBUMIN/GLOBULIN RATIO 0.6 (0.8-2.0); ANION GAP 15.2 mmol/L (8-16); CALCIUM 8.5 mg/dL (8.4-10.2); CREATININE, SERUM 1.17 mg/dL (0.72-1.25); POTASSIUM 4.2 mmol/L (3.5-5.1)
[2021-04-24 07:29] LABS: BAND NEUTROPHILS % (MANUAL) 1 %; EOSINOPHILS % (MANUAL) 1 % (0-7); LYMPHOCYTES % (MANUAL) 19 % (19-48); MONOCYTES % (MANUAL) 1 % (3.4-9.0); NEUTROPHILS % (MANUAL) 77 % (40-74)
[2021-04-24 07:30] LABS: PLATELET ESTIMATE MODERATELY DECREASED; PLATELET MORPHOLOGY COMMENT NORMAL; RBC MORPHOLOGY COMMENT NORMAL
[2021-04-24] MEDS: ZINC SULFATE 220 MG CAP PO SCH (08:51)
[2021-04-24] MEDS: SENNOSIDES 8.6 MG TAB PO SCH (08:51)
[2021-04-24] MEDS: PANTOPRAZOLE SOD 40 MG TABEC PO SCH (08:51)
[2021-04-24] MEDS: LEVETIRACETAM 500MG/5ML VIAL 500 MG in SODIUM CHLORIDE 0.9% 100 ML IV SCH (08:51)
[2021-04-24] MEDS: ASCORBIC ACID 500 MG TAB PO SCH (08:51)
[2021-04-24] MEDS: METOCLOPRAMIDE HCL 10 MG/2ML VIAL IV SCH ×4 (08:51→21:54)
[2021-04-24] MEDS: DESMOPRESSIN ACETATE 5 ML SPRAY NS SCH (08:51)
[2021-04-24] MEDS: ALLOPURINOL 100 MG TAB PO SCH (08:52)
[2021-04-24] MEDS: ENOXAPARIN 30 MG/0.3 ML SYR SC SCH (08:52)
[2021-04-24] MEDS: ACETAMINOPHEN 325 MG TAB PO PRN (08:52)
[2021-04-24] MEDS: CHOLECALCIFEROL 1,000 UNIT TAB PO SCH (08:53)
[2021-04-24] MEDS ORDERED: ALBUMIN 25% 25GM 100ML 0.25 GM/ML BTL IV SCH (09:00)
[2021-04-24] MEDS ORDERED: ALBUMIN 25% 12.5GM 50ML 200 ML IV ONE (09:30)
[2021-04-24] MEDS: MIDODRINE HCL 5 MG TABLET PO SCH ×2 (18:28→21:56)
[2021-04-25] VITALS (25 sets, daily range): BP systolic 90–109; BP diastolic 49–70
[2021-04-25] MEDS: VASOPRESSIN 60 UNIT in DEXTROSE 5% 50ML 57 ML IV PRN (02:37)
[2021-04-25] MEDS: NOREPINEPHRINE 8 MG/D5W 250 ML 250 ML IV SCH ×3 (02:37→20:47)
[2021-04-25] MEDS: DEXTROSE 5% 1,000 ML IV SCH (05:30)
[2021-04-25] MEDS: MIDODRINE HCL 5 MG TABLET PO SCH ×3 (05:30→22:02)
[2021-04-25 06:25] LABS: BASOPHILS # (AUTO) 0.1 (0.0-0.1); BASOPHILS % 0.5 % (0.0-1.0); EOSINOPHILS # (AUTO) 0.4 (0.0-0.4); EOSINOPHILS % 1.9 % (0.0-6.0); HEMATOCRIT 25.9 % (38.2-49.6); HEMOGLOBIN 8.1 g/dL (14.0-18.0); LYMPHOCYTES % 9.1 % (18.0-39.1); MEAN CORPUSCULAR HEMOGLOBIN 31.8 pg (28-32); MEAN CORPUSCULAR HGB CONC 31.3 g/dL (31-35); MEAN CORPUSCULAR VOLUME 101.6 fL (81-99); MONOCYTES # (AUTO) 0.4 (0.2-0.8); NEUTROPHILS # (AUTO) 18.4 (2.1-6.9); NEUTROPHILS % 85.3 % (38.7-80.0); PLATELET COUNT 67 x10e3/uL (140-360); RED BLOOD COUNT 2.55 x10e6/uL (4.3-5.7); RED CELL DISTRIBUTION WIDTH 16.4 % (11.7-14.4)
[2021-04-25 06:48] LABS: ALBUMIN 2.7 g/dL (3.5-5.0); ALBUMIN/GLOBULIN RATIO 0.8 (0.8-2.0); ANION GAP 14.4 mmol/L (8-16); CALCIUM 7.8 mg/dL (8.4-10.2); CREATININE, SERUM 0.87 mg/dL (0.72-1.25); POTASSIUM 3.4 mmol/L (3.5-5.1)
[2021-04-25 07:49] LABS: BAND NEUTROPHILS % (MANUAL) 1 %; EOSINOPHILS % (MANUAL) 2 % (0-7); LYMPHOCYTES % (MANUAL) 10 % (19-48); MONOCYTES % (MANUAL) 1 % (3.4-9.0); NEUTROPHILS % (MANUAL) 86 % (40-74); NUCLEATED RED BLOOD CELLS 1
[2021-04-25 07:50] LABS: PLATELET ESTIMATE MODERATELY DECREASED; PLATELET MORPHOLOGY COMMENT FEW GIANT; RBC MORPHOLOGY COMMENT NORMAL
[2021-04-25] MEDS: METOCLOPRAMIDE HCL 10 MG/2ML VIAL IV SCH ×4 (09:52→21:13)
[2021-04-25] MEDS: LEVETIRACETAM 500MG/5ML VIAL 500 MG in SODIUM CHLORIDE 0.9% 100 ML IV SCH (09:52)
[2021-04-25] MEDS: DESMOPRESSIN ACETATE 5 ML SPRAY NS SCH (09:57)
[2021-04-25] MEDS: ASCORBIC ACID 500 MG TAB PO SCH (09:58)
[2021-04-25] MEDS: SENNOSIDES 8.6 MG TAB PO SCH (09:58)
[2021-04-25] MEDS: CHOLECALCIFEROL 1,000 UNIT TAB PO SCH (09:58)
[2021-04-25] MEDS: ZINC SULFATE 220 MG CAP PO SCH (09:58)
[2021-04-25] MEDS: ALLOPURINOL 100 MG TAB PO SCH (09:58)
[2021-04-25] MEDS: PANTOPRAZOLE SODIUM 40 MG SUSPDR.PKT PO SCH (11:29)
[2021-04-26] VITALS (25 sets, daily range): BP systolic 56–145; BP diastolic 34–93
[2021-04-26] MEDS ORDERED: DEXTROSE 50% SYRINGE 50 ML IV ONE (00:07)
[2021-04-26] MEDS: PHENYLEPHRINE 10MG/ML VIAL 40 MG in DEXTROSE 5% 250ML 250 ML IV PRN ×5 (02:15→20:42)
[2021-04-26] MEDS: NOREPINEPHRINE 8 MG/D5W 250 ML 250 ML IV SCH ×3 (05:24→20:53)
[2021-04-26 05:25] LABS: BASOPHILS # (AUTO) 0.1 (0.0-0.1); BASOPHILS % 0.4 % (0.0-1.0); EOSINOPHILS # (AUTO) 0.2 (0.0-0.4); EOSINOPHILS % 1.1 % (0.0-6.0); HEMATOCRIT 26.4 % (38.2-49.6); HEMOGLOBIN 8.1 g/dL (14.0-18.0); LYMPHOCYTES # (AUTO) 2.8 (1.0-3.2); LYMPHOCYTES % 13.5 % (18.0-39.1); MEAN CORPUSCULAR HEMOGLOBIN 32.3 pg (28-32); MEAN CORPUSCULAR HGB CONC 30.7 g/dL (31-35); MEAN CORPUSCULAR VOLUME 105.2 fL (81-99); MONOCYTES # (AUTO) 0.4 (0.2-0.8); MONOCYTES % 2.1 % (4.4-11.3); NEUTROPHILS # (AUTO) 16.8 (2.1-6.9); NEUTROPHILS % 81.8 % (38.7-80.0); PLATELET COUNT 68 x10e3/uL (140-360); RED BLOOD COUNT 2.51 x10e6/uL (4.3-5.7); RED CELL DISTRIBUTION WIDTH 16.5 % (11.7-14.4)
[2021-04-26] MEDS ORDERED: PHENYLEPHRINE HCL IN 0.9% NACL 250 ML IV ONE ×2 (05:30→06:19)
[2021-04-26] MEDS: CEFEPIME 1 GM in SODIUM CHLORIDE 0.9% 50ML 50 ML IV SCH ×3 (05:31→21:25)
[2021-04-26] MEDS: MIDODRINE HCL 5 MG TABLET PO SCH ×3 (05:31→21:27)
[2021-04-26 05:40] LABS: ALBUMIN 2.5 g/dL (3.5-5.0); ALBUMIN/GLOBULIN RATIO 0.7 (0.8-2.0); ANION GAP 18.9 mmol/L (8-16); CALCIUM 7.6 mg/dL (8.4-10.2); CREATININE, SERUM 2.35 mg/dL (0.72-1.25); MAGNESIUM 1.5 MG/DL (1.3-2.1); PHOSPHORUS 6.3 MG/DL (2.3-4.7); POTASSIUM 3.9 mmol/L (3.5-5.1)
[2021-04-26] MEDS ORDERED: SODIUM CHLORIDE 0.9% 1000ML 1,000 ML IV SCH ×2 (06:45→07:45)
[2021-04-26] MEDS ORDERED: SODIUM CHLORIDE 0.9% 1000ML 1,000 ML ONE (06:48)
[2021-04-26] MEDS ORDERED: HYDROCORTISONE SOD SUCCINATE 100 MG VIAL IV ONE (07:15)
[2021-04-26] MEDS ORDERED: Vancomycin IV 1 GM in SODIUM CHLORIDE 0.9% 250ML 250 ML IV ONE (07:15)
[2021-04-26] MEDS ORDERED: SODIUM CHLORIDE 0.9% 250ML 250 ML ONE (07:19)
[2021-04-26] MEDS ORDERED: Vancomycin IV 1 GM VIAL ONE (07:19)
[2021-04-26] MEDS ORDERED: HYDROCORTISONE SOD SUCCINATE 100 MG VIAL ONE (07:19)
[2021-04-26] MEDS: PANTOPRAZOLE SODIUM 40 MG SUSPDR.PKT PO SCH (07:50)
[2021-04-26] MEDS: LEVETIRACETAM 500MG/5ML VIAL 500 MG in SODIUM CHLORIDE 0.9% 100 ML IV SCH (07:50)
[2021-04-26] MEDS: METOCLOPRAMIDE HCL 10 MG/2ML VIAL IV SCH ×4 (07:50→21:25)
[2021-04-26] MEDS: SENNOSIDES 8.6 MG TAB PO SCH (07:50)
[2021-04-26] MEDS: DESMOPRESSIN ACETATE 5 ML SPRAY NS SCH (07:50)
[2021-04-26] MEDS: ALLOPURINOL 100 MG TAB PO SCH (07:51)
[2021-04-26] MEDS: ZINC SULFATE 220 MG CAP PO SCH (07:51)
[2021-04-26] MEDS: ASCORBIC ACID 500 MG TAB PO SCH (07:51)
[2021-04-26] MEDS: CHOLECALCIFEROL 1,000 UNIT TAB PO SCH (07:51)
[2021-04-26] MEDS: ACETAMINOPHEN 325 MG TAB PO PRN ×2 (07:52→12:10)
[2021-04-26] MEDS ORDERED: SODIUM CHLORIDE 0.9% 100 ML ONE (07:55)
[2021-04-26 08:01] LABS: EOSINOPHILS % (MANUAL) 1 % (0-7); LYMPHOCYTES % (MANUAL) 13 % (19-48); MONOCYTES % (MANUAL) 4 % (3.4-9.0); NEUTROPHILS % (MANUAL) 82 % (40-74); NUCLEATED RED BLOOD CELLS 1
[2021-04-26 08:02] LABS: PLATELET ESTIMATE MODERATELY DECREASED; PLATELET MORPHOLOGY COMMENT NORMAL; RBC MORPHOLOGY COMMENT NORMAL
[2021-04-26] MEDS: VASOPRESSIN 60 UNIT in DEXTROSE 5% 50ML 57 ML IV PRN (09:00)
[2021-04-26 13:47] LABS: ANION GAP 21.2 mmol/L (8-16); CALCIUM 7.5 mg/dL (8.4-10.2); CREATININE, SERUM 2.92 mg/dL (0.72-1.25); POTASSIUM 4.2 mmol/L (3.5-5.1)
[2021-04-26] MEDS ORDERED: ETOMIDATE 2 MG/ML 10 ML INJ IV ONE (14:05)
[2021-04-26 16:39] LABS: ABG PH 7.04 (7.35-7.45)
[2021-04-26 16:40] LABS: ABG HCO3 18 mmol/L (22-26); ABG PCO2 66 mmHg (35-45); ABG PO2 93 mmHg (80-105); ABG TCO2 20
[2021-04-26] MEDS ORDERED: LORAZEPAM INJ 2 MG/ML VIAL ONE (19:08)
[2021-04-26] MEDS ORDERED: HEPARIN SOD (PORCINE) 1000 UNIT/ML SDV ONE (19:37)
[2021-04-26 20:18] LABS: ABG HCO3 18 mmol/L (22-26); ABG PCO2 43 mmHg (35-45); ABG PH 7.23 (7.35-7.45); ABG PO2 106 mmHg (80-105); ABG TCO2 19
[2021-04-27] VITALS (24 sets, daily range): BP systolic 90–148; BP diastolic 38–98
[2021-04-27] MEDS ORDERED: PHENYLEPHRINE HCL IN 0.9% NACL 250 ML IV ONE (00:13)
[2021-04-27] MEDS: PHENYLEPHRINE 10MG/ML VIAL 40 MG in DEXTROSE 5% 250ML 250 ML IV PRN ×5 (00:22→22:20)
[2021-04-27] MEDS: NOREPINEPHRINE 8 MG/D5W 250 ML 250 ML IV SCH ×3 (00:52→15:32)
[2021-04-27] MEDS: MIDODRINE HCL 5 MG TABLET PO SCH ×3 (05:36→21:11)
[2021-04-27] MEDS: CEFEPIME 1 GM in SODIUM CHLORIDE 0.9% 50ML 50 ML IV SCH ×2 (05:36→13:37)
[2021-04-27 06:46] LABS: BASOPHILS # (AUTO) 0.1 (0.0-0.1); BASOPHILS % 0.4 % (0.0-1.0); HEMATOCRIT 24.2 % (38.2-49.6); HEMOGLOBIN 7.8 g/dL (14.0-18.0); LYMPHOCYTES # (AUTO) 1.1 (1.0-3.2); MEAN CORPUSCULAR HGB CONC 32.2 g/dL (31-35); MEAN CORPUSCULAR VOLUME 99.2 fL (81-99); MONOCYTES # (AUTO) 0.4 (0.2-0.8); MONOCYTES % 1.2 % (4.4-11.3); NEUTROPHILS # (AUTO) 33.7 (2.1-6.9); NEUTROPHILS % 93.3 % (38.7-80.0); PLATELET COUNT 57 x10e3/uL (140-360); RED BLOOD COUNT 2.44 x10e6/uL (4.3-5.7); RED CELL DISTRIBUTION WIDTH 16.3 % (11.7-14.4)
[2021-04-27 07:12] LABS: ALBUMIN 2.2 g/dL (3.5-5.0); ALBUMIN/GLOBULIN RATIO 0.6 (0.8-2.0); ANION GAP 24.4 mmol/L (8-16); CALCIUM 7.2 mg/dL (8.4-10.2); CREATININE, SERUM 2.74 mg/dL (0.72-1.25); POTASSIUM 4.4 mmol/L (3.5-5.1)
[2021-04-27] MEDS: PANTOPRAZOLE SODIUM 40 MG SUSPDR.PKT PO SCH (08:03)
[2021-04-27] MEDS: METOCLOPRAMIDE HCL 10 MG/2ML VIAL IV SCH ×4 (08:03→21:06)
[2021-04-27] MEDS: LEVETIRACETAM 500MG/5ML VIAL 1,000 MG in SODIUM CHLORIDE 0.9% 100 ML 100 ML IV SCH ×2 (08:04→17:00)
[2021-04-27] MEDS: DESMOPRESSIN ACETATE 5 ML SPRAY NS SCH (08:04)
[2021-04-27] MEDS: CHOLECALCIFEROL 1,000 UNIT TAB PO SCH (08:05)
[2021-04-27] MEDS: SENNOSIDES 8.6 MG TAB PO SCH (08:05)
[2021-04-27] MEDS: ALLOPURINOL 100 MG TAB PO SCH (08:05)
[2021-04-27] MEDS: ZINC SULFATE 220 MG CAP PO SCH (08:05)
[2021-04-27] MEDS: ASCORBIC ACID 500 MG TAB PO SCH (08:05)
[2021-04-27] MEDS: ACETAMINOPHEN 325 MG TAB PO PRN (08:06)
[2021-04-27] MEDS ORDERED: LORAZEPAM INJ 2 MG/ML VIAL ONE (08:25)
[2021-04-27 09:55] LABS: BAND NEUTROPHILS % (MANUAL) 1 %; LYMPHOCYTES % (MANUAL) 3 % (19-48); MONOCYTES % (MANUAL) 1 % (3.4-9.0); NEUTROPHILS % (MANUAL) 95 % (40-74)
[2021-04-27 09:56] LABS: ANISOCYTOSIS SLIGHT; PLATELET ESTIMATE MODERATELY DECREASED; PLATELET MORPHOLOGY COMMENT NORMAL; RBC MORPHOLOGY COMMENT ABNORMAL
[2021-04-27 10:45] LABS: ABG HCO3 16 mmol/L (22-26); ABG PCO2 34 mmHg (35-45); ABG PH 7.29 (7.35-7.45); ABG PO2 223 mmHg (80-105); ABG TCO2 17
[2021-04-27] MEDS ORDERED: HEPARIN SOD (PORCINE) 5,000 UNIT/ML VIAL ONE (12:40)
[2021-04-28] VITALS (26 sets, daily range): BP systolic 83–127; BP diastolic 40–89
[2021-04-28] MEDS: VASOPRESSIN 60 UNIT in DEXTROSE 5% 50ML 57 ML IV PRN ×3 (01:45→17:30)
[2021-04-28] MEDS: NOREPINEPHRINE 8 MG/D5W 250 ML 250 ML IV SCH ×3 (01:45→17:29)
[2021-04-28] MEDS: MIDODRINE HCL 5 MG TABLET PO SCH ×3 (06:19→22:15)
[2021-04-28 06:24] LABS: BASOPHILS % 0.2 % (0.0-1.0); EOSINOPHILS # (AUTO) 0.1 (0.0-0.4); EOSINOPHILS % 0.4 % (0.0-6.0); LYMPHOCYTES # (AUTO) 1.3 (1.0-3.2); LYMPHOCYTES % 7.9 % (18.0-39.1); MEAN CORPUSCULAR HEMOGLOBIN 32.5 pg (28-32); MEAN CORPUSCULAR HGB CONC 35.6 g/dL (31-35); MEAN CORPUSCULAR VOLUME 91.5 fL (81-99); MONOCYTES # (AUTO) 0.2 (0.2-0.8); MONOCYTES % 1.1 % (4.4-11.3); NEUTROPHILS # (AUTO) 15.1 (2.1-6.9); NEUTROPHILS % 89.3 % (38.7-80.0); RED BLOOD COUNT 2.12 x10e6/uL (4.3-5.7); RED CELL DISTRIBUTION WIDTH 15.8 % (11.7-14.4)
[2021-04-28 06:31] LABS: HEMATOCRIT 19.4 % (38.2-49.6); HEMOGLOBIN 6.9 g/dL (14.0-18.0); PLATELET COUNT 45 x10e3/uL (140-360)
[2021-04-28 06:44] LABS: ALBUMIN 1.9 g/dL (3.5-5.0); CALCIUM 7.1 mg/dL (8.4-10.2)
[2021-04-28 07:09] LABS: ALBUMIN/GLOBULIN RATIO 0.5 (0.8-2.0); CREATININE, SERUM 2.51 mg/dL (0.72-1.25)
[2021-04-28] MEDS ORDERED: ACETAMINOPHEN 325 MG TAB PO STA (08:20)
[2021-04-28] MEDS ORDERED: SODIUM CHLORIDE 0.9% 250ML 250 ML IV ONE (08:30)
[2021-04-28 08:35] LABS: ABG HCO3 24 mmol/L (22-26); ABG PCO2 30 mmHg (35-45); ABG PO2 175 mmHg (80-105); ABG TCO2 24
[2021-04-28] MEDS: CHOLECALCIFEROL 1,000 UNIT TAB PO SCH (09:00)
[2021-04-28 09:06] LABS: EOSINOPHILS % (MANUAL) 1 % (0-7); LYMPHOCYTES % (MANUAL) 3 % (19-48); NEUTROPHILS % (MANUAL) 96 % (40-74)
[2021-04-28 09:07] LABS: PLATELET ESTIMATE MODERATELY DECREASED; PLATELET MORPHOLOGY COMMENT NORMAL; RBC MORPHOLOGY COMMENT NORMAL
[2021-04-28] MEDS: PANTOPRAZOLE SODIUM 40 MG SUSPDR.PKT PO SCH (09:40)
[2021-04-28] MEDS: METOCLOPRAMIDE HCL 10 MG/2ML VIAL IV SCH ×4 (09:40→21:49)
[2021-04-28] MEDS: ZINC SULFATE 220 MG CAP PO SCH (09:41)
[2021-04-28] MEDS: LEVETIRACETAM 500MG/5ML VIAL 1,000 MG in SODIUM CHLORIDE 0.9% 100 ML 100 ML IV SCH ×2 (09:41→16:16)
[2021-04-28] MEDS: ASCORBIC ACID 500 MG TAB PO SCH (09:41)
[2021-04-28] MEDS: SENNOSIDES 8.6 MG TAB PO SCH (09:41)
[2021-04-28] MEDS: ALLOPURINOL 100 MG TAB PO SCH (09:41)
[2021-04-28] MEDS: ACETAMINOPHEN 325 MG TAB PO PRN (11:20)
[2021-04-28] MEDS ORDERED: SODIUM CHLORIDE 0.9% 1000ML 2,000 ML ONE (11:33)
[2021-04-28] MEDS ORDERED: POTASSIUM CHLORIDE 20MEQ/100ML 100 ML IV ONE (12:00)
[2021-04-28] MEDS: PHENYLEPHRINE 10MG/ML VIAL 40 MG in DEXTROSE 5% 250ML 250 ML IV PRN (22:47)
[2021-04-29] VITALS (26 sets, daily range): BP systolic 80–118; BP diastolic 44–80
[2021-04-29] MEDS: MIDODRINE HCL 5 MG TABLET PO SCH ×3 (06:00→22:00)
[2021-04-29 06:26] LABS: BASOPHILS # (AUTO) 0.1 (0.0-0.1); BASOPHILS % 0.4 % (0.0-1.0); EOSINOPHILS # (AUTO) 0.2 (0.0-0.4); EOSINOPHILS % 1.2 % (0.0-6.0); HEMATOCRIT 29.2 % (38.2-49.6); HEMOGLOBIN 9.9 g/dL (14.0-18.0); LYMPHOCYTES # (AUTO) 1.2 (1.0-3.2); LYMPHOCYTES % 7.2 % (18.0-39.1); MEAN CORPUSCULAR HEMOGLOBIN 29.6 pg (28-32); MEAN CORPUSCULAR HGB CONC 33.9 g/dL (31-35); MEAN CORPUSCULAR VOLUME 87.2 fL (81-99); MONOCYTES # (AUTO) 0.2 (0.2-0.8); MONOCYTES % 1.4 % (4.4-11.3); NEUTROPHILS # (AUTO) 15.1 (2.1-6.9); NEUTROPHILS % 88.2 % (38.7-80.0); RED BLOOD COUNT 3.35 x10e6/uL (4.3-5.7); RED CELL DISTRIBUTION WIDTH 17.6 % (11.7-14.4)
[2021-04-29 06:36] LABS: PLATELET COUNT 35 x10e3/uL (140-360)
[2021-04-29 06:47] LABS: ALBUMIN 1.9 g/dL (3.5-5.0); ALBUMIN/GLOBULIN RATIO 0.5 (0.8-2.0); ANION GAP 18.2 mmol/L (8-16); CALCIUM 7.4 mg/dL (8.4-10.2); CREATININE, SERUM 1.64 mg/dL (0.72-1.25); POTASSIUM 3.2 mmol/L (3.5-5.1)
[2021-04-29] MEDS: CHOLECALCIFEROL 1,000 UNIT TAB PO SCH (07:58)
[2021-04-29] MEDS: SENNOSIDES 8.6 MG TAB PO SCH (07:58)
[2021-04-29] MEDS: METOCLOPRAMIDE HCL 10 MG/2ML VIAL IV SCH ×4 (07:58→21:22)
[2021-04-29] MEDS: ASCORBIC ACID 500 MG TAB PO SCH (07:58)
[2021-04-29] MEDS: PANTOPRAZOLE SODIUM 40 MG SUSPDR.PKT PO SCH (07:58)
[2021-04-29] MEDS: LEVETIRACETAM 500MG/5ML VIAL 1,000 MG in SODIUM CHLORIDE 0.9% 100 ML 100 ML IV SCH ×2 (07:58→16:46)
[2021-04-29] MEDS: ZINC SULFATE 220 MG CAP PO SCH (07:59)
[2021-04-29] MEDS: ALLOPURINOL 100 MG TAB PO SCH (07:59)
[2021-04-29 08:14] LABS: ANISOCYTOSIS SLIGHT; BAND NEUTROPHILS % (MANUAL) 2 %; EOSINOPHILS % (MANUAL) 1 % (0-7); HYPOCHROMASIA SLIGHT; LYMPHOCYTES % (MANUAL) 7 % (19-48); METAMYELOCYTES % (MANUAL) 1 % (0-0); MONOCYTES % (MANUAL) 2 % (3.4-9.0); NEUTROPHILS % (MANUAL) 87 % (40-74); NUCLEATED RED BLOOD CELLS 1; PLATELET ESTIMATE MARKEDLY DECREASED; PLATELET MORPHOLOGY COMMENT NORMAL; RBC MORPHOLOGY COMMENT NORMAL
[2021-04-29] MEDS: VASOPRESSIN 60 UNIT in DEXTROSE 5% 50ML 57 ML IV PRN (10:38)
[2021-04-29] MEDS: PHENYLEPHRINE 10MG/ML VIAL 40 MG in DEXTROSE 5% 250ML 250 ML IV PRN (10:38)
[2021-04-29 15:21] LABS: ABG HCO3 27 mmol/L (22-26); ABG PCO2 37 mmHg (35-45); ABG PH 7.46 (7.35-7.45); ABG PO2 157 mmHg (80-105); ABG TCO2 28
[2021-04-29] MEDS ORDERED: HEPARIN SOD (PORCINE) 1000 UNIT/ML SDV ONE (21:31)
[2021-04-30] VITALS (25 sets, daily range): BP systolic 86–108; BP diastolic 42–72
[2021-04-30] MEDS: NOREPINEPHRINE 8 MG/D5W 250 ML 250 ML IV SCH ×2 (01:40→21:30)
[2021-04-30] MEDS: PHENYLEPHRINE 10MG/ML VIAL 40 MG in DEXTROSE 5% 250ML 250 ML IV PRN ×2 (04:00→17:52)
[2021-04-30] MEDS: MIDODRINE HCL 5 MG TABLET PO SCH ×3 (06:19→21:18)
[2021-04-30 06:33] LABS: ALBUMIN/GLOBULIN RATIO 0.5 (0.8-2.0); ANION GAP 18.3 mmol/L (8-16); CALCIUM 7.7 mg/dL (8.4-10.2); CREATININE, SERUM 1.76 mg/dL (0.72-1.25); POTASSIUM 3.3 mmol/L (3.5-5.1)
[2021-04-30 06:34] LABS: BASOPHILS # (AUTO) 0.1 (0.0-0.1); BASOPHILS % 0.5 % (0.0-1.0); EOSINOPHILS # (AUTO) 0.4 (0.0-0.4); EOSINOPHILS % 2.2 % (0.0-6.0); HEMATOCRIT 30.7 % (38.2-49.6); HEMOGLOBIN 10.3 g/dL (14.0-18.0); LYMPHOCYTES # (AUTO) 1.5 (1.0-3.2); LYMPHOCYTES % 8.8 % (18.0-39.1); MEAN CORPUSCULAR HEMOGLOBIN 30.1 pg (28-32); MEAN CORPUSCULAR HGB CONC 33.6 g/dL (31-35); MEAN CORPUSCULAR VOLUME 89.8 fL (81-99); MONOCYTES # (AUTO) 0.3 (0.2-0.8); MONOCYTES % 1.7 % (4.4-11.3); NEUTROPHILS # (AUTO) 14.4 (2.1-6.9); NEUTROPHILS % 82.7 % (38.7-80.0); RED BLOOD COUNT 3.42 x10e6/uL (4.3-5.7); RED CELL DISTRIBUTION WIDTH 17.8 % (11.7-14.4)
[2021-04-30] MEDS: VASOPRESSIN 60 UNIT in DEXTROSE 5% 50ML 57 ML IV PRN ×2 (06:37→17:52)
[2021-04-30 06:43] LABS: PLATELET COUNT 30 x10e3/uL (140-360)
[2021-04-30 08:31] LABS: BAND NEUTROPHILS % (MANUAL) 1 %; LYMPHOCYTES % (MANUAL) 6 % (19-48); MONOCYTES % (MANUAL) 1 % (3.4-9.0); MYELOCYTES % (MANUAL) 1 % (0-0); NEUTROPHILS % (MANUAL) 89 % (40-74); NUCLEATED RED BLOOD CELLS 2; PLATELET ESTIMATE MARKEDLY DECREASED; PLATELET MORPHOLOGY COMMENT NORMAL; RBC MORPHOLOGY COMMENT NORMAL
[2021-04-30] MEDS: CHOLECALCIFEROL 1,000 UNIT TAB PO SCH (08:39)
[2021-04-30] MEDS: ALLOPURINOL 100 MG TAB PO SCH (08:39)
[2021-04-30] MEDS: METOCLOPRAMIDE HCL 10 MG/2ML VIAL IV SCH ×4 (08:39→21:17)
[2021-04-30] MEDS: SENNOSIDES 8.6 MG TAB PO SCH (08:39)
[2021-04-30] MEDS: LEVETIRACETAM 500MG/5ML VIAL 1,000 MG in SODIUM CHLORIDE 0.9% 100 ML 100 ML IV SCH ×2 (08:39→16:17)
[2021-04-30] MEDS: PANTOPRAZOLE SODIUM 40 MG SUSPDR.PKT PO SCH (08:39)
[2021-04-30] MEDS: ZINC SULFATE 220 MG CAP PO SCH (08:39)
[2021-04-30] MEDS: ASCORBIC ACID 500 MG TAB PO SCH (08:39)
[2021-04-30] MEDS ORDERED: BUMETANIDE INJ 0.25MG/ML 4ML VIAL IV ONE (12:30)
[2021-04-30] MEDS ORDERED: POTASSIUM CHLORIDE 20MEQ/100ML 200 ML IV ONE (12:30)
[2021-04-30] MEDS: ACETAMINOPHEN 325 MG TAB PO PRN (13:37)
[2021-04-30] MEDS ORDERED: ZINC OXIDE/ MENTHOL 113 GM TUBE TOP SCH (15:00)
[2021-04-30] MEDS: ZINC OXIDE 30 GM TUBE TOP SCH ×2 (15:30→21:18)
[2021-05-01] VITALS (25 sets, daily range): BP systolic 81–102; BP diastolic 49–65
[2021-05-01] MEDS: MIDODRINE HCL 5 MG TABLET PO SCH ×3 (06:09→20:26)
[2021-05-01 06:17] LABS: BASOPHILS # (AUTO) 0.1 (0.0-0.1); BASOPHILS % 0.8 % (0.0-1.0); EOSINOPHILS # (AUTO) 0.5 (0.0-0.4); EOSINOPHILS % 3.2 % (0.0-6.0); HEMATOCRIT 30.2 % (38.2-49.6); HEMOGLOBIN 10.3 g/dL (14.0-18.0); LYMPHOCYTES # (AUTO) 2.3 (1.0-3.2); MEAN CORPUSCULAR HEMOGLOBIN 30.3 pg (28-32); MEAN CORPUSCULAR HGB CONC 34.1 g/dL (31-35); MEAN CORPUSCULAR VOLUME 88.8 fL (81-99); MONOCYTES # (AUTO) 0.3 (0.2-0.8); MONOCYTES % 2.1 % (4.4-11.3); NEUTROPHILS # (AUTO) 10.5 (2.1-6.9); NEUTROPHILS % 72.2 % (38.7-80.0); RED CELL DISTRIBUTION WIDTH 17.8 % (11.7-14.4)
[2021-05-01 06:41] LABS: PLATELET COUNT 31 x10e3/uL (140-360)
[2021-05-01 06:57] LABS: ALBUMIN/GLOBULIN RATIO 0.5 (0.8-2.0); ANION GAP 20.8 mmol/L (8-16); CALCIUM 7.5 mg/dL (8.4-10.2); CREATININE, SERUM 1.79 mg/dL (0.72-1.25); POTASSIUM 3.8 mmol/L (3.5-5.1)
[2021-05-01 07:20] LABS: EOSINOPHILS % (MANUAL) 3 % (0-7); LYMPHOCYTES % (MANUAL) 5 % (19-48); MONOCYTES % (MANUAL) 3 % (3.4-9.0); NEUTROPHILS % (MANUAL) 89 % (40-74); NUCLEATED RED BLOOD CELLS 4
[2021-05-01 07:21] LABS: PLATELET ESTIMATE MARKEDLY DECREASED; PLATELET MORPHOLOGY COMMENT FEW LARGE; RBC MORPHOLOGY COMMENT NORMAL
[2021-05-01] MEDS: PHENYLEPHRINE 10MG/ML VIAL 40 MG in DEXTROSE 5% 250ML 250 ML IV PRN (07:30)
[2021-05-01] MEDS: VASOPRESSIN 60 UNIT in DEXTROSE 5% 50ML 57 ML IV PRN ×2 (07:30→21:56)
[2021-05-01] MEDS: NOREPINEPHRINE 8 MG/D5W 250 ML 250 ML IV SCH ×3 (07:30→23:51)
[2021-05-01] MEDS: METOCLOPRAMIDE HCL 10 MG/2ML VIAL IV SCH ×4 (07:51→20:26)
[2021-05-01] MEDS: PANTOPRAZOLE SODIUM 40 MG SUSPDR.PKT PO SCH (07:51)
[2021-05-01] MEDS: ALLOPURINOL 100 MG TAB PO SCH (08:15)
[2021-05-01] MEDS: SENNOSIDES 8.6 MG TAB PO SCH (08:15)
[2021-05-01] MEDS: ZINC OXIDE 30 GM TUBE TOP SCH ×3 (08:15→20:26)
[2021-05-01] MEDS: ASCORBIC ACID 500 MG TAB PO SCH (08:15)
[2021-05-01] MEDS: ZINC SULFATE 220 MG CAP PO SCH (08:15)
[2021-05-01] MEDS: CHOLECALCIFEROL 1,000 UNIT TAB PO SCH (08:15)
[2021-05-01] MEDS: LEVETIRACETAM 500MG/5ML VIAL 1,000 MG in SODIUM CHLORIDE 0.9% 100 ML 100 ML IV SCH ×2 (08:15→17:00)
[2021-05-02] VITALS (11 sets, daily range): BP systolic 78–94; BP diastolic 52–61
[2021-05-02] MEDS: NOREPINEPHRINE 8 MG/D5W 250 ML 250 ML IV SCH (02:35)
[2021-05-02] MEDS: VASOPRESSIN 60 UNIT in DEXTROSE 5% 50ML 57 ML IV PRN (02:35)
[2021-05-02] MEDS: MIDODRINE HCL 5 MG TABLET PO SCH (05:14)
[2021-05-02] MEDS: CHOLECALCIFEROL 1,000 UNIT TAB PO SCH (06:59)
[2021-05-02] MEDS: ZINC OXIDE 30 GM TUBE TOP SCH (07:49)
[2021-05-02] MEDS: PANTOPRAZOLE SODIUM 40 MG SUSPDR.PKT PO SCH (07:49)
[2021-05-02] MEDS: LEVETIRACETAM 500MG/5ML VIAL 1,000 MG in SODIUM CHLORIDE 0.9% 100 ML 100 ML IV SCH (07:49)
[2021-05-02] MEDS: ASCORBIC ACID 500 MG TAB PO SCH (07:49)
[2021-05-02] MEDS: SENNOSIDES 8.6 MG TAB PO SCH (07:49)
[2021-05-02] MEDS: ALLOPURINOL 100 MG TAB PO SCH (07:49)
[2021-05-02] MEDS: METOCLOPRAMIDE HCL 10 MG/2ML VIAL IV SCH (07:49)
[2021-05-02] MEDS: ZINC SULFATE 220 MG CAP PO SCH (07:49)
[2021-05-02] MEDS ORDERED: LORAZEPAM INJ 2 MG/ML VIAL IV PRN (09:45)
[2021-05-02] MEDS ORDERED: MORPHINE SULFATE INJ 2 MG/ML SYR IV PRN (09:45)
[2021-05-02] MEDS ORDERED: METHYLPREDNISOLONE SOD SUCC 125 MG/2ML VIAL IV ONE (10:20)
== END 2021-05-02 15:56 | disposition expired | DRG 207 ==
LOC: ER 10:50 → ERHOLD 13:43 → IMCU 21:11 → COVIDICU 04-13 12:02
PROVIDERS: ADMIT Internal Medicine; ATTEND Internal Medicine
PROC: 02HV33Z Insertion of Infusion Device into Superior Vena Cava, Percutaneous Approach (ICD-10-PCS; principal; 2021-04-05)
PROC: 5A1955Z Respiratory Ventilation, Greater than 96 Consecutive Hours (ICD-10-PCS; 2021-04-13)
PROC: 0BH17EZ Insertion of Endotracheal Airway into Trachea, Via Natural or Artificial Opening (ICD-10-PCS; 2021-04-13)
PROC: 02HV33Z Insertion of Infusion Device into Superior Vena Cava, Percutaneous Approach (ICD-10-PCS; 2021-04-25)
PROC: B548ZZA Ultrasonography of Superior Vena Cava, Guidance (ICD-10-PCS; 2021-04-25)
PROC: B548ZZA Ultrasonography of Superior Vena Cava, Guidance (ICD-10-PCS; 2021-04-26)
PROC: 02HV33Z Insertion of Infusion Device into Superior Vena Cava, Percutaneous Approach (ICD-10-PCS; 2021-04-26)
PROC: 5A1D70Z Performance of Urinary Filtration, Intermittent, Less than 6 Hours Per Day (ICD-10-PCS; 2021-04-27)
PROC: 30243N1 Transfusion of Nonautologous Red Blood Cells into Central Vein, Percutaneous Approach (ICD-10-PCS; 2021-04-28)
DX: U07.1 COVID-19 (principal); J12.82 Pneumonia due to coronavirus disease 2019; G93.41 Metabolic encephalopathy; R53.2 Functional quadriplegia; J96.01 Acute respiratory failure with hypoxia; N17.0 Acute kidney failure with tubular necrosis; J15.9 Unspecified bacterial pneumonia; A41.9 Sepsis, unspecified organism; R65.21 Severe sepsis with septic shock; E87.0 Hyperosmolality and hypernatremia; E23.2 Diabetes insipidus; N17.9 Acute kidney failure, unspecified; J95.851 Ventilator associated pneumonia; G40.509 Epileptic seizures related to external causes, not intractable, without status epilepticus; G93.1 Anoxic brain damage, not elsewhere classified; E87.1 Hypo-osmolality and hyponatremia; E11.9 Type 2 diabetes mellitus without complications; Z85.841 Personal history of malignant neoplasm of brain; Z74.01 Bed confinement status; N18.30 Chronic kidney disease, stage 3 unspecified; E83.39 Other disorders of phosphorus metabolism; E87.6 Hypokalemia; H10.33 Unspecified acute conjunctivitis, bilateral; D63.8 Anemia in other chronic diseases classified elsewhere; Z91.19 Patient's noncompliance with other medical treatment and regimen; Z90.49 Acquired absence of other specified parts of digestive tract; D69.6 Thrombocytopenia, unspecified; Z66 Do not resuscitate
CPT/HCPCS: 36415; 36569; 36600; 51700; 70450; 71045; 71260; 74018; 74177; 80048; 80053; 81001; 82570; 82805; 82948; 83036; 83605; 83615; 83690; 83735; 83935; 84100; 84134; 84300; 84550; 85025; 86592; 86705; 86706; 86850; 86900; 86920; 87040; 87086; 87340; 93005; 93306; 94002; 94003; 95812; 95822; 96361; 97139; 99251; 99284; J0330; J0692; J1644; J1650; J1720; J2020; J2060; J2185; J2250; J2370; J2405; J2765; J3370; J3475; J3480; J7030; J7050; J7070; J7799; P9016; Q9967; U0002